=== PATIENT | male | born 1955 | race Caucasian/White ===

== ENCOUNTER 2025-02-04 19:53 | Inpatient (IN) | payer MEDICARE, OTHER ==
--- NOTE | 2025-02-04 20:35 | ED ---
General Adult HPI - General Chief complaint: Fall Stated complaint: Chest Pain Time Seen by Provider: 02/04/25 19:56 Source: patient, EMS, RN notes reviewed Mode of arrival: EMS - History of Present Illness Initial comments: 69-year-old male presents to the emergency department for evaluation of abnormal arm movements. He reports he attempted to sit on the recliner and fell the the ground. He believes that he lost his balance. He did not hit his head or lose consciousness. Did not have any injury from this. He proceeded to take his afternoon nap. He states that upon waking from his afternoon nap, he noticed that his left arm seemed to be moving in uncontrollable movements. He reports that this concerned him and he attempted to call 911 on his cell phone. He states that he was unable to get it to work and therefore he went outside and flagged down a neighbor to call the ambulance for him. He endorses pain in his left hand with swelling that has been ongoing for the past 2 weeks. Denies any numbness, tingling, weakness. - Related Data Previous Rx's Medication Instructions Recorded Apixaban [Eliquis] 5 mg PO BID #60 tab 02/07/25 Aspirin 81 mg PO DAILY tab 02/07/25 Atorvastatin [Lipitor] 80 mg PO HS #30 tab 02/07/25 Chlorthalidone [Hygroton] 25 mg PO DAILY #30 tab 02/07/25 Losartan [Cozaar] 100 mg PO HS #60 tab 02/07/25 Nicotine 21Mg/24Hr Patch [Habitrol] 1 patch TRANSDERM DAILY #30 patch 02/07/25 allopurinoL [Zyloprim] 200 mg PO DAILY #60 tab 02/07/25 levETIRAcetam [Keppra] 500 mg PO Q12HR #60 tab 02/07/25 Allergies Allergy/AdvReac Type Severity Reaction Status Date / Time No Known Allergies Allergy Verified 02/05/25 08:40 Review of Systems ROS Statement: Those systems with pertinent positive or pertinent negative responses have been documented in the HPI. ROS Other: All systems not noted in ROS Statement are negative. Past Medical History Past Medical History: No Reported History History of Any Multi-Drug Resistant Organisms: None Reported Past Surgical History: No Surgical Hx Reported Smoking Status: Current every day smoker Past Alcohol Use History: Occasional Past Drug Use History: Marijuana General Exam Limitations: no limitations General appearance: alert, in no apparent distress Head exam: Present: atraumatic, normocephalic, normal inspection Eye exam: Present: normal appearance, PERRL, EOMI. Absent: scleral icterus, conjunctival injection, periorbital swelling ENT exam: Present: normal exam, mucous membranes moist Neck exam: Present: normal inspection. Absent: tenderness, meningismus, lymphadenopathy Respiratory exam: Present: normal lung sounds bilaterally. Absent: respiratory distress, wheezes, rales, rhonchi, stridor Cardiovascular Exam: Present: regular rate, irregular rhythm, normal heart sounds. Absent: systolic murmur, diastolic murmur, rubs, gallop, clicks GI/Abdominal exam: Present: soft, normal bowel sounds. Absent: distended, te nderness, guarding, rebound, rigid Extremities exam: Present: full ROM, normal capillary refill, other (Mild swelling over the dorsal aspect of the left hand). Absent: tenderness, pedal edema, joint swelling, calf tenderness Neurological exam: Present: alert, oriented X3, CN II-XII intact Expanded Neurological exam: Present: protecting the airway Patient oriented to: Present: person, place, time Speech: Present: fluid speech Cranial nerves: EOM's Intact: Normal, Gag Reflex: Normal, Facial Sensation: Normal Upper motor neuron: Pronator Drift: Normal Sensory exam: Upper Extremity Light Touch: Normal, Lower Extremity Light Touch: Normal Motor strength exam: RUE: 5, LUE: 5, RLE: 5, LLE: 5 Eye Response: (4) open spontaneously Motor Response: (6) obeys commands Verbal Response: (5) oriented [place] Total: 15 Psychiatric exam: Present: normal affect, normal mood Skin exam: Present: warm, dry, intact, normal color. Absent: rash Course Vital Signs 02/04/25 02/04/25 02/04/25 19:55 21:24 22:52 Pulse Rate 60 80 68 Respiratory 18 19 19 Rate Blood Pressure 181/125 159/119 181/133 O2 Sat by Pulse 96 98 Oximetry 02/05/25 02/05/25 02/05/25 00:08 01:21 03:50 Pulse Rate 67 66 69 Respiratory 18 17 18 Rate Blood Pressure 153/96 161/134 154/92 O2 Sat by Pulse 97 98 Oximetry 02/05/25 05:25 Pulse Rate 56 L Respiratory 18 Rate Blood Pressure 143/100 O2 Sat by Pulse 98 Oximetry Medical Decision Making - Medical Decision Making Was pt. sent in by a medical professional or institution (ANKITA Tony, PRECISION DEVICES INSPECTOR/TESTER, urgent care, hospital, or fpc...) When possible be specific @ -No Did you speak to anyone other than the patient for history (EMS, parent, family, police, friend...)? What history was obtained from this source @ -No Did you review nursing and triage notes (agree or disagree)? Why? @ -I reviewed and agree with nursing and triage notes Were old charts reviewed (outside hosp., previous admission, EMS record, old EKG, old radiological studies, urgent care reports/EKG's, fpc records)? Report findings @ -No old charts were reviewed Differential Diagnosis (chest pain, altered mental status, abdominal pain women, abdominal pain men, vaginal bleeding, weakness, fever, dyspnea, syncope, headache, dizziness, GI bleed, back pain, seizure, CVA, palpatations, mental health, musculoskeletal)? @ -Differential Musculoskeletal Muscular strain, contusion, ligament sprain, fracture, arthritis, septic arthritis, bursitis, cellulitis, muscle spasm, nerve compression, DVT, arterial occlusion, herpes zoster, electrolyte abnormality, tumor.... This is not meant to be in all inclusive list EKG interpreted by me (3pts min.). @ -EKG@195 shows A-fib with rate of 91, QRS 136, QTQTc 376/425 X-rays interpreted by me (1pt min.). @ -X-ray of the left hand reveals osteoarthritic change without evidence for acute process CT interpreted by me (1pt min.). @ -CT brain and C spine reveals Vasogenic edema with loss of pimentel-white matter junction at the right temporal lobe/provide reason, no evidence of intracranial hemorrhage, no evidence of C-spine fracture U/S interpreted by me (1pt. min.). @ -US UE reveals no evidence of DVT What testing was considered but not performed or refused? (CT, X-rays, U/S, labs)? Why? @ -None What meds were considered but not given or refused? Why? @ -None Did you discuss the management of the patient with other professionals (professionals i.e. ANKITA Tony, PRECISION DEVICES INSPECTOR/TESTER, lab, RT, psych nurse, neonatal social worker, title i teacher, teacher, civil preparedness officer, case work aide)? Give summary @ -Management was discussed with Dr. Bartlett by my attending physician Was smoking cessation discussed for >3mins.? @ -No Was critical care preformed (if so, how long)? @ -No Were there social determinants of health that impacted care today? How? (Homelessness, low income, unemployed, alcoholism, drug addiction, transportation, low edu. Level, literacy, decrease access to med. care, detention, r ehab)? @ -No Was there de-escalation of care discussed even if they declined (Discuss DNR or withdrawal of care, Hospice)? DNR status @ -No What co-morbidities impacted this encounter? (DM, HTN, Smoking, COPD, CAD, Cancer, CVA, ARF, Chemo, Hep., AIDS, mental health diagnosis, sleep apnea, morbid obesity)? @ -None Was patient admitted / discharged? Hospital course, mention meds given and route, prescriptions, significant lab abnormalities, going to OR and other pertinent info. @ -Admitted. Patient presented to the emergency department for abnormal left arm movements. Laboratory studies were obtained revealing no significant leukocytosis, hemoglobin 17.8 normal coagulation studies; CMP is nonactionable. Patient underwent x-ray of the left hand revealing osteoarthritic changes without evidence of acute process. Ultrasound of the upper extremity reveals no evidence of DVT. Because of the vague neurocomplaints and the recent fall a CT of the brain was performed although the patient had a normal neurological examination, CT reveals the patient vasogenic edema with loss of pimentel-white matter junction within the right temporal lobe/parietal region, no evidence for acute intracranial hemorrhage, no evidence of C-spine fracture. Patient will be admitted with neuroconsultation. Patient's NIH 0 at time of my evaluation. Patient also has new onset A-fib and an echocardiogram was ordered. He will not be started on heparin at this time due to the recent CVA Case discussed with Dr. Bartlett by my attending physician Case discussed with Dr. Escobedo Undiagnosed new problem with uncertain prognosis? @ -No Drug Therapy requiring intensive monitoring for toxicity (Heparin, Nitro, Insulin, Cardizem)? @ -No Were any procedures done? @ -No Diagnosis/symptom? @ -CVA, new onset A-fib Acute, or Chronic, or Acute on Chronic? @ -Acute Uncomplicated (without systemic symptoms) or Complicated (systemic symptoms)? @ -Complicated Side effects of treatment? @ -No Exacerbation, Progression, or Severe Exacerbation? @ -No Poses a threat to life or bodily function? How? (Chest pain, [place], [place], pneumonia, PE, COPD, DKA, ARF, appy, cholecystitis, CVA, Diverticulitis, Homicidal, Suicidal, threat to staff... and all critical care pts) @ -No - Lab Data Result diagrams: 02/06/25 04:04 02/04/25 20:27 Lab Results 02/04/25 02/04/25 02/04/25 Range/Units 20:27 20:27 20:27 WBC 10.04 H (4.50-10.00) 10*3/uL RBC 6.23 H (4.40-5.60) 10*6/uL Hgb 17.8 H (13.0-17.0) g/dL Hct 52.2 H (39.6-50.0) % MCV 83.8 (80.0-97.0) fL MCH 28.6 (27.0-32.0) pg MCHC 34.1 (32.0-37.0) g/dL Plt Count 232 (140-440) 10*3/uL MPV 9.8 (9.5-12.2) fL Immature Gran % (Auto) 0.4 % Neutrophils % 67.8 % Lymphocytes % 20.4 % Monocytes % 8.9 % Eosinophils % 1.5 % Basophils % 1.0 % Immature Gran # 0.04 (0.00-0.04) 10*3/uL Neutrophils # 6.81 (1.80-7.70) 10*3/uL Lymphocytes # 2.05 (0.90-5.00) 10*3/uL Monocytes # 0.89 (0.20-1.00) 10*3/uL Eosinophils # 0.15 (0.04-0.35) 10*3/uL Basophils # 0.10 (0.00-0.10) 10*3/uL PT 11.8 (10.0-12.5) sec INR 1.1 (<1.2) APTT 22.4 (22.0-30.0) sec Sodium 137 (137-145) mmol/L Potassium 4.6 (3.5-5.1) mmol/L Chloride 102 (98-107) mmol/L Carbon Dioxide 23 (22-30) mmol/L Anion Gap 12 mmol/L BUN 15 (9-20) mg/dL Creatinine 0.72 (0.66-1.25) mg/dL Est GFR (CKD-EPI)AfAm >90 (>60 ml/min/1.73 sqM) Est GFR (CKD-EPI)NonAf >90 (>60 ml/min/1.73 sqM) Glucose 99 (74-99) mg/dL Estimated Ave Glu mg/dL mg/dL Hemoglobin A1c (<=6.0) % Calcium 10.3 H (8.4-10.2) mg/dL Magnesium 1.7 (1.6-2.3) mg/dL Total Bilirubin 0.8 (0.2-1.3) mg/dL AST 26 (17-59) U/L ALT 15 (4-49) U/L Alkaline Phosphatase 60 (38-126) U/L Troponin I (0.000-0.034) ng/mL Total Protein 6.7 (6.3-8.2) g/dL Albumin 4.2 (3.5-5.0) g/dL Triglycerides (0.00-149.00) mg/dL Cholesterol (0.00-200.00) mg/dL LDL Cholesterol, Calc (0.0-131.0) mg/dL VLDL Cholesterol, Calc (5.00-40.00) mg/dL HDL Cholesterol (40.00-60.00) mg/dL Cholesterol/HDL Ratio Ratio TSH (0.350-5.500) UIU/ML 02/04/25 02/04/25 02/04/25 Range/Units 20:27 20:27 20:27 WBC (4.50-10.00) 10*3/uL RBC (4.40-5.60) 10*6/uL Hgb (13.0-17.0) g/dL Hct (39.6-50.0) % MCV (80.0-97.0) fL MCH (27.0-32.0) pg MCHC (32.0-37.0) g/dL Plt Count (140-440) 10*3/uL MPV (9.5-12.2) fL Immature Gran % (Auto) % Neutrophils % % Lymphocytes % % Monocytes % % Eosinophils % % Basophils % % Immature Gran # (0.00-0.04) 10*3/uL Neutrophils # (1.80-7.70) 10*3/uL Lymphocytes # (0.90-5.00) 10*3/uL Monocytes # (0.20-1.00) 10*3/uL Eosinophils # (0.04-0.35) 10*3/uL Basophils # (0.00-0.10) 10*3/uL PT (10.0-12.5) sec INR (<1.2) APTT (22.0-30.0) sec Sodium (137-145) mmol/L Potassium (3.5-5.1) mmol/L Chloride (98-107) mmol/L Carbon Dioxide (22-30) mmol/L Anion Gap mmol/L BUN (9-20) mg/dL Creatinine (0.66-1.25) mg/dL Est GFR (CKD-EPI)AfAm (>60 ml/min/1.73 sqM) Est GFR (CKD-EPI)NonAf (>60 ml/min/1.73 sqM) Glucose (74-99) mg/dL Estimated Ave Glu mg/dL 117 mg/dL Hemoglobin A1c 5.7 (<=6.0) % Calcium (8.4-10.2) mg/dL Magnesium (1.6-2.3) mg/dL Total Bilirubin (0.2-1.3) mg/dL AST (17-59) U/L ALT (4-49) U/L Alkaline Phosphatase (38-126) U/L Troponin I <0.012 (0.000-0.034) ng/mL Total Protein (6.3-8.2) g/dL Albumin (3.5-5.0) g/dL Triglycerides 132.00 (0.00-149.00) mg/dL Cholesterol 173.00 (0.00-200.00) mg/dL LDL Cholesterol, Calc 108.0 (0.0-131.0) mg/dL VLDL Cholesterol, Calc 26.40 (5.00-40.00) mg/dL HDL Cholesterol 38.60 L (40.00-60.00) mg/dL Cholesterol/HDL Ratio 4.48 Ratio TSH 1.900 (0.350-5.500) UIU/ML Disposition Clinical Impression: CVA (cerebral vascular accident), New onset a-fib Disposition: ADMITTED IP TO THIS HOSP Is patient prescribed a controlled substance at d/c from ED?: No
[2025-02-04 20:55] LABS: Basophils # (A) 0.10 10*3/uL (0.00-0.10); Basophils % (A) 1.0 %; Eosinophils # (A) 0.15 10*3/uL (0.04-0.35); Eosinophils % (A) 1.5 %; HCT 52.2 % (39.6-50.0); HGB 17.8 g/dL (13.0-17.0); Lymphocytes # (A) 2.05 10*3/uL (0.90-5.00); Lymphocytes % (A) 20.4 %; MCH 28.6 pg (27.0-32.0); MCHC 34.1 g/dL (32.0-37.0); MCV 83.8 fL (80.0-97.0); Monocytes # (A) 0.89 10*3/uL (0.20-1.00); Monocytes % (A) 8.9 %; Neutrophils # (A) 6.81 10*3/uL (1.80-7.70); Neutrophils % (A) 67.8 %; Platelet Count 232 10*3/uL (140-440); RBC 6.23 10*6/uL (4.40-5.60); RDW 13.3 % (11.5-14.5); WBC 10.04 10*3/uL (4.50-10.00)
[2025-02-04 21:03] LABS: ALT 15 U/L (4-49); African American GFR (CKD) >90 (>60 ml/min/1.73 sqM); Albumin 4.2 g/dL (3.5-5.0); Anion Gap 12 mmol/L; Blood Urea Nitrogen 15 mg/dL (9-20); Calcium 10.3 mg/dL (8.4-10.2); Carbon Dioxide 23 mmol/L (22-30); Chloride 102 mmol/L (98-107); Glucose 99 mg/dL (74-99); Non-African American GFR(CKD) >90 (>60 ml/min/1.73 sqM); Sodium 137 mmol/L (137-145); Total Protein 6.7 g/dL (6.3-8.2)
[2025-02-04 21:07] LABS: INR 1.1 (<1.2); Partial Thromboplastin Time 22.4 sec (22.0-30.0); Prothrombin Time 11.8 sec (10.0-12.5)
[2025-02-04 21:10] LABS: AST 26 U/L (17-59); Alkaline Phosphatase 60 U/L (38-126); Magnesium 1.7 mg/dL (1.6-2.3); Potassium 4.6 mmol/L (3.5-5.1)
--- NOTE | 2025-02-04 21:11 | XR ---
EXAMINATION TYPE: XR hand complete LT DATE OF EXAM: 02/04/2025 8:58 PM COMPARISON: None CLINICAL INDICATION: Male, 69 years old with history of pain; PHH, pain TECHNIQUE: XR hand complete LT 3 views were obtained. FINDINGS: Normal alignment of the visualized joints. No acute osseous pathology is identified. No e vidence of soft tissue swelling. Multifocal degeneration changes with joint space narrowing and osteo phyte formation. IMPRESSION: 1. No acute osseous pathology. 2. Multifocal osteoarthrosis throughout the joints of the hand. [facility], , 02/04/2025 9:09 PM
--- NOTE | 2025-02-04 22:00 | US ---
EXAMINATION TYPE: US venous doppler duplex LE LT DATE OF EXAM: 02/04/2025 9:49 PM COMPARISON: NONE CLINICAL INDICATION: Male, 69 years old with history of pain; pain TECHNIQUE: The lower extremity deep venous system is examined utilizing real time linear array sonog bekah with graded compression, doppler sonography and color-flow sonography. Grayscale, color doppler , spectral doppler imaging performed of the deep veins of the lower extremities FINDINGS: SIDE PERFORMED: Left VESSELS IMAGED: Common Femoral Vein Deep Femoral Vein Greater Saphenous Vein * Femoral Vein Popliteal Vein Small Saphenous Vein * Proximal Calf Veins (* superficial vessels) Left Leg: appears negative for dvt; There is normal flow, compressibility, vascular waveforms. IMPRESSION: No evidence for deep vein thrombosis. [facility], , 02/04/2025 9:58 PM
[2025-02-04] MEDS: LABETALOL 5 MG/ML VIAL MDV IVP STA (22:58)
--- NOTE | 2025-02-04 23:38 | CT ---
EXAMINATION TYPE: CT brain cspine wo con DATE OF EXAM: 02/04/2025 11:19 PM COMPARISON: None. CLINICAL INDICATION: Male, 69 years old with history of fall, pain; pain TECHNIQUE: Brain: Multiple axial CT images of the brain were obtained without IV contrast. Cspine: Axial CT images from the skull base to the inferior aspect of T2 we obtained without intraven ous contrast. Coronal and sagittal reformatted images were also reviewed. . CT DLP: 1574 mGycm, Automated exposure control for dose reduction was used. FINDINGS: Brain: Extra-axial spaces: No abnormal extra-axial fluid collections. Ventricular system: Dilatation in proportion to cerebral atrophy. Cerebral parenchyma: Loss of pimentel-white matter junction differentiation within the right temporal/par ietal lobe. Cerebral atrophy. No acute intraparenchymal hemorrhage or mass effect. The remainder of the pimentel-white junctions are well differentiated. Scattered hypoattenuating areas are seen within the white matter. Cerebellum: Unremarkable. Mass effect: No evidence of midline shift. Intracranial vasculature: Atherosclerotic calcifications of the intracranial vessels. Soft tissues: Normal. Calvarium/osseous structures: No depressed skull fracture. Paranasal sinuses and mastoid air cells: Clear. Visualized orbits: Orbital contents are intact. Cervical spine: Fracture: None. Osseous structures: Multilevel degenerative disc disease changes with endplate spurring and disc oste ophyte complex's. Vertebral alignment: Within normal limits. Spinal canal/Neural Foramina: No evidence of significant spinal canal narrowing. No evidence for sign ificant neural foraminal stenosis. Neck soft tissues: Prevertebral soft tissues are within normal limits. Other: The airway is patent. The lung apices are clear. IMPRESSION: 1. Vasogenic edema with loss of pimentel-white matter junction within the right temporal lobe/parietal r egion correlate for signs and symptoms of acute/subacute CVA. 2. No evidence for intracranial hemorrhage. 3. No evidence of cervical spine fracture. 4. Moderate multilevel degenerative disc disease. Findings communicated to BILLY Maxwell on 02/04/2025 11:[address] Danielito Acosta. [facility], , 02/04/2025 11:36 PM
[2025-02-05] MEDS: SODIUM CHLORIDE 0.9% 1,000 ML IV ONE (00:07)
[2025-02-05] MEDS ORDERED: LABETALOL 5 MG/ML VIAL MDV IVP PRN (00:21)
[2025-02-05] MEDS: ASPIRIN 325 MG TAB PO STA (01:20)
--- NOTE | 2025-02-05 02:54 | CT ---
EXAM: CT Angiography Head With Intravenous Contrast CLINICAL HISTORY: ITS.REASON CT Reason: cva TECHNIQUE: Axial computed tomographic angiography images of the head with intravenous contrast. CTDI is 52.8 mGy and DLP is 50.1 mGy-cm. This CT exam was performed using one or more of the following dose reduction techniques: automated exposure control, adjustment of the mA and/or kV according to patient size, and/or use of iterative reconstruction technique. MIP reconstructed images were created and reviewed. COMPARISON: No relevant prior studies available. FINDINGS: The dural venous sinuses are patent. Right internal carotid artery: No acute findings. Intracranial segment is patent with no significant stenosis. No aneurysm. Right anterior cerebral artery: Unremarkable. No occlusion or significant stenosis. No aneurysm. Right middle cerebral artery: Unremarkable. No occlusion or significant stenosis. No aneurysm. Right posterior cerebral artery: Unremarkable. No occlusion or significant stenosis. No aneurysm. Right vertebral artery: Unremarkable as visualized. Left internal carotid artery: No acute findings. Intracranial segment is patent with no significant stenosis. No aneurysm. Left anterior cerebral artery: Unremarkable. No occlusion or significant stenosis. No aneurysm. Left middle cerebral artery: Unremarkable. No occlusion or significant stenosis. No aneurysm. Left posterior cerebral artery: Unremarkable. No occlusion or significant stenosis. No aneurysm. Left vertebral artery: Unremarkable as visualized. Basilar artery: Unremarkable. No occlusion or significant stenosis. No aneurysm. IMPRESSION: Negative CT angiogram of the head. EXAM: CT Angiography Neck With Intravenous Contrast CLINICAL HISTORY: ITS.REASON CT Reason: cva TECHNIQUE: Routine carotid CT angiography protocol was performed with intravenous contrast. NASCET criteria using the distal ICAs for comparison were used for evaluation of stenoses. CTDI is 52.8 mGy and DLP is 591.3 mGy-cm. This CT exam was performed using one or more of the following dose reduction techniques: automated exposure control, adjustment of the mA and/or kV according to patient size, and/or use of iterative reconstruction technique. MIP reconstructed images were created and reviewed. COMPARISON: None. FINDINGS: VASCULATURE: Right common carotid artery: Unremarkable. No occlusion or significant stenosis. No dissection. Right internal carotid artery: There is a 30% stenosis of the proximal right ICA with low attenuation plaque.. No dissection. Right external carotid artery: Unremarkable. No occlusion. Right vertebral artery: Unremarkable. No occlusion or significant stenosis. No dissection. Left common carotid artery: Unremarkable. No occlusion or significant stenosis. No dissection. Left internal carotid artery: Unremarkable. Extracranial segment is patent with no occlusion or significant stenosis. No dissection. Left external carotid artery: Unremarkable. No occlusion. Left vertebral artery: Unremarkable. No occlusion or significant stenosis. No dissection. NECK: Bones/joints: Periapical abscess around tooth #5. Recommend dental consult. There is a critical spinal canal stenosis at C5-6 and C6-7. No acute fracture. Soft tissues: Prominent mediastinal lymph nodes. Prominent cervical lymph nodes. Lung apices: Bronchitis. CAROTID STENOSIS REFERENCE USING NASCET CRITERIA: % ICA stenosis = (1 - narrowest ICA diameter/diameter of distal cervical ICA) x 100. Mild - <50% stenosis. Moderate - 50-69% stenosis. Severe - 70-94% stenosis. Near occlusion - 95-99% stenosis. Occluded - 100% stenosis. IMPRESSION: Negative CTA neck. There is a critical spinal canal stenosis at C5-6 and C6-7. Recommend MRI of the cervical spine to evaluate for myelopathy.
[2025-02-05] MEDS: LABETALOL 5 MG/ML VIAL MDV IVP STA (05:48)
[2025-02-05] MEDS: ENOXAPARIN 40 MG/0.4 ML SYRINGE SQ SCH (10:58)
[2025-02-05] MEDS: NICOTINE 21MG/24HR PATCH TRANSDERM SCH (10:59)
--- NOTE | 2025-02-05 11:07 | P.CRDCN ---
History of Present Illness History of present illness: HISTORY OF PRESENT ILLNESS: This is a 69-year-old male with no significant past medical history. However patient states he has not seen a physician in over 2 years. Patient also does not follow with a sterile process coordinator. Patient does not follow with a sterile process coordinator. We have been asked to see the patient in consultation for atrial fibrillation. Patient examined at the bedside. Patient presented to the hospital yesterday after waking up from a nap. He states that his left arm was moving uncontrollably and states it felt like it had a mind of its own he states that he went to sit in the chair and lost his balance and fell. He denies having any syncope. He denies any chest pain or pressure. Denies any shortness of breath. Denies any palpitations. Patient was found to be in atrial fibrillation. He denies any known history of atrial fibrillation. DIAGNOSTICS: - EKG reveals atrial fibrillation with controlled ventricular rate - Chest xray: No acute process noted - Laboratory data: Troponin negative x 1 - Current home cardiac medications include none. -No previous echocardiogram, stress test, or cardiac catheterization available in EMR for review REVIEW OF SYSTEMS: At the time of my exam: CONSTITUTIONAL: Denies fever or chills. HEENT: Denies blurred vision, vision changes, or eye pain. Denies hemoptysis CARDIOVASCULAR: Denies chest pain. Denies orthopnea. Denies PND. Denies palpitations RESPIRATORY: Denies shortness of breath. GASTROINTESTINAL: Denies abdominal pain. Denies nausea or vomiting. HEMATOLOGIC: Denies bleeding disorders. GENITOURINARY: Denies any blood in urine. SKIN: Denies pruitis. Denies rash. PHYSICAL EXAM: VITAL SIGNS: Reviewed. GENERAL: Well-developed in no acute distress. HEENT: Head is normocephalic. Pupils are equal, round. Sclerae anicteric. Mucous membranes of the mouth are moist. Neck supple. No JVD or thyromegaly LUNGS: Respirations even and unlabored. Lungs essentially clear to auscultation bilaterally. HEART: Irregular rate and rhythm. S1 and S2 heard. ABDOMEN: Soft. Nondistended. Nontender. EXTREMITIES: Normal range of motion. No clubbing or cyanosis. Peripheral pulses intact. No lower extremity edema NEUROLOGIC: Awake and alert. Oriented x 3. ASSESSMENT: New onset atrial fibrillation with controlled ventricular rate Involuntary movements of left arm, rule out CVA/TIA Hypertension PLAN: Obtain 2D echo to assess cardiac structure and function Check TSH, hemoglobin A1c, and lipid panel Add Lipitor Begin Eliquis 5 mg twice a day Continue telemetry monitoring Will allow for permissive hypertension until neurology has evaluated the patient Neurology consulted. Await evaluation Further recommendations pending patient course Nurse practitioner note has been reviewed by physician. Signing provider agrees with the documented findings, assessment, and plan of care documented by SYSTEMS SOFTWARE DEVELOPER as a scribe. Past Medical History Past Medical History: No Reported History History of Any Multi-Drug Resistant Organisms: None Reported Past Surgical History: Orthopedic Surgery Additional Past Surgical History / Comment(s): broke ankle years ago, has 3 screws. Past Anesthesia/Blood Transfusion Reactions: No Reported Reaction Past Psychological History: No Psychological Hx Reported Smoking Status: Current every day smoker Past Alcohol Use History: Occasional Past Drug Use History: Marijuana Medications and Allergies Home Medications Medication Instructions Recorded Confirmed Type No Known Home Medications 02/05/25 02/05/25 History Allergies Allergy/AdvReac Type Severity Reaction Status Date / Time No Known Allergies Allergy Verified 02/05/25 08:40 Physical Exam Vitals: Vital Signs Temp Pulse Pulse Pulse Resp BP BP 02/05/25 07:00 97.7 F 51 L 14 163/91 02/05/25 06:07 97.7 F 65 19 161/81 02/05/25 05:25 56 L 18 143/100 02/05/25 03:50 69 18 154/92 02/05/25 01:21 66 17 161/134 02/05/25 00:08 67 18 153/96 02/04/25 22:52 68 19 181/133 02/04/25 21:24 80 19 159/119 02/04/25 19:55 60 18 181/125 Pulse Ox 02/05/25 07:00 98 02/05/25 06:07 97 02/05/25 05:25 98 02/05/25 03:50 98 02/05/25 01:21 02/05/25 00:08 97 02/04/25 22:52 98 02/04/25 21:24 02/04/25 19:55 96 Intake and Output 02/04/25 02/05/25 02/05/25 22:59 06:59 14:59 Other: Voiding Method Toilet # Voids 1 Weight 99.79 kg 99.79 kg Results 02/04/25 20:27 02/04/25 20:27 Cardiac Enzymes 02/04/25 02/04/25 Range/Units 20:27 20:27 AST 26 (17-59) U/L Troponin I <0.012 (0.000-0.034) ng/mL Coagulation 02/04/25 Range/Units 20:27 PT 11.8 (10.0-12.5) sec APTT 22.4 (22.0-30.0) sec CBC 02/04/25 Range/Units 20:27 WBC 10.04 H (4.50-10.00) 10*3/uL RBC 6.23 H (4.40-5.60) 10*6/uL Hgb 17.8 H (13.0-17.0) g/dL Hct 52.2 H (39.6-50.0) % Plt Count 232 (140-440) 10*3/uL Comprehensive Metabolic Panel 02/04/25 Range/Units 20:27 Sodium 137 (137-145) mmol/L Potassium 4.6 (3.5-5.1) mmol/L Chloride 102 (98-107) mmol/L Carbon Dioxide 23 (22-30) mmol/L BUN 15 (9-20) mg/dL Creatinine 0.72 (0.66-1.25) mg/dL Glucose 99 (74-99) mg/dL Calcium 10.3 H (8.4-10.2) mg/dL AST 26 (17-59) U/L ALT 15 (4-49) U/L Alkaline Phosphatase 60 (38-126) U/L Total Protein 6.7 (6.3-8.2) g/dL Albumin 4.2 (3.5-5.0) g/dL Current Medications Generic Name Dose Route Start Last Admin Trade Name Freq PRN Reason Stop Dose Admin Aspirin 325 mg 02/06/25 09:00 Aspirin 325 Mg Tab PO DAILY BROOKS Intake and Output 02/04/25 02/05/25 02/05/25 22:59 06:59 14:59 Other: Voiding Method Toilet # Voids 1 Weight 99.79 kg 99.79 kg 02/04/25 20:27 02/04/25 20:27
--- NOTE | 2025-02-05 11:46 | CA ---
Transthoracic Echo Report Name: aDrci Schmidt Age: 69 Gender: M : 1955 Exam Date: 02/05/2025 09:27 Exam Location: [facility] Ht (in): 71 Wt (lb): 220 Ordering Physician: Nadege Dyson Attending/Referring Phys: Maintenance Operator Sherrie Chadwick [id number] Procedure CPT: Indications: Thrombus Cardiac Hx: Technical Quality: Poor Contrast 1: Definity Total Dose (mL): 2 Contrast 2: Total Dose (mL): MEASUREMENTS (Male / Female) Normal Values 2D ECHO LV Diastolic Diameter PLAX 5.7 cm 4.2 - 5.9 / 3.9 - 5.3 cm LV Systolic Diameter PLAX 5.2 cm IVS Diastolic Thickness 1.0 cm 0.6 - 1.0 / 0.6 - 0.9 cm LVPW Diastolic Thickness 1.4 cm 0.6 - 1.0 / 0.6 - 0.9 cm LV Relative Wall Thickness 0.4 RV Internal Dim ED PLAX 2.8 cm LVOT Diameter 2.3 cm LA Systolic Diameter LX 4.4 cm 3.0 - 4.0 / 2.7 - 3.8 cm LV Diastolic Volume MOD BP 138.2 cm??? 67 - 155 / 56 - 104 cm??? LV Systolic Volume MOD BP 69.5 cm??? - / 19 - 49 cm??? LV Ejection Fraction MOD BP 49.7 % >= 55 % LV Cardiac Index MOD BP 1550.1 cm???/min???m??? LV Diastolic Volume MOD 4C 144.5 cm??? LV Systolic Volume MOD 4C 73.4 cm??? LV Ejection Fraction MOD 4C 49.2 % LV Cardiac Index MOD 4C 1604.0 cm???/min???m??? LV Diastolic Length 4C 8.4 cm LV Systolic Length 4C 7.3 cm LV Diastolic Volume MOD 2C 133.7 cm??? LV Systolic Volume MOD 2C 63.4 cm??? LV Ejection Fraction MOD 2C 52.6 % LV Cardiac Index MOD 2C 1585.7 cm???/min???m??? LV Diastolic Length 2C 8.3 cm LV Systolic Length 2C 7.0 cm LA Volume 77.1 cm??? - 58 / 22 - 52 cm??? LA Volume Index 34.1 cm???/m??? 16 - 28 cm???/m??? Ascending Aorta Diameter 4.2 cm M-MODE Aortic Root Diameter MM 3.9 cm AV Cusp Separation MM 2.2 cm DOPPLER AV Peak Velocity 105.8 cm/s AV Peak Gradient 4.5 mmHg LVOT Peak Velocity 81.9 cm/s LVOT Peak Gradient 2.7 mmHg AV Area Cont Eq pk 3.3 cm??? MV Area PHT 6.0 cm??? Mitral E Point Velocity 86.4 cm/s Mitral A Point Velocity 20.1 cm/s Mitral E to A Ratio 4.3 MV Deceleration Time 125.6 ms TR Peak Velocity 243.1 cm/s TR Peak Gradient 23.6 mmHg Right Ventricular Systolic Press 28.6 mmHg FINDINGS Left Ventricle Left ventricular ejection fraction is estimated at 45-50%. Mildly increased left ventricular systolic volume. Mildly decreased left ventricular ejection fraction. the inferoseptal apex is hypokinetic . Right Ventricle Normal right ventricular size and function. Right ventricular systolic pressure within normal limits. Right Atrium Mild right atrial dilatation. No right atrial thrombus or mass seen. Left Atrium Mildly increased left atrial diameter. Moderately increased left atrial volume. Mildly increased left atrial area. No left atrial thrombus or mass present. Mitral Valve Mitral valve thickened. Mitral annular calcification. Trace to mild mitral regurgitation. Aortic Valve Trileaflet aortic valve. No aortic stenosis. No aortic regurgitation. Tricuspid Valve Tricuspid valve not well visualized. No tricuspid regurgitation. Pulmonic Valve Pulmonic valve not well visualized. Trace pulmonic regurgitation. Pericardium No pericardial effusion. Pleural effusion. Aorta Normal size aortic root mildly dilated proximal ascending aorta 4.2cm CONCLUSIONS Mildly impaired LV function with EF between 40 to 45% Previewed by: Dr. Quinton Mason MD (Electronically Signed) Final Date: 05 February 2025 11:45
[2025-02-05] MEDS ORDERED: HEPARIN SODIUM 1,000 UN/ML (10ML VL) IV PRN (14:16)
[2025-02-05] MEDS: HEPARIN SOD,PORK IN 0.45% NACL 25,000 UNIT in 0.45% NACL 1 250ML.BAG IV SCH (14:37)
--- NOTE | 2025-02-05 14:38 | P.CNNES ---
History of Present Illness Consult date: 02/05/25 Requesting physician: Nadege Dyson Reason for Consult: cva History of Present Illness: This is a 69-year-old gentleman who presents emergency department because of abnormal movement of the left upper extremity. Patient stated that he noticed the symptoms yesterday around 4 to 5 PM and the left arm had abnormal movements but did not lose consciousness. Upon asking him if was weak he denies any weakness. Denies any numbness. Denies any visual disturbance. Denies any speech difficulty. Denies any history of stroke or seizures. Patient states that he is fairly healthy other than a gout but does acknowledge that he has not seen primary care physician in a couple years. It seems that he notified the ED team that he attempted to sit on rocking or chair and fell to the ground and he felt like he lost his balance but did not lose consciousness. He did not have any head injury. Then he took a nap and then upon waking up in the early afternoon he noticed his left arm seems to be moving uncontrollable movement. This seems to the patient while in the ED had new onset A-fib. Patient is on any antiplatelet or any anticoagulation Some of the workup during this hospital visit consisted of: I will review the lab workup CT of the head and cervical spine is reported as vasogenic edema with loss of pimentel-white matter junction within the right temporal parietal region correlate for signs symptoms for acute/subacute CVA. No evidence of intracranial hemorrhage. No evidence of cervical spine fracture. Moderate multilevel degenerative disc disease. I personally reviewed the see TE and I feel patient does not have hypoattenuation over the predominantly the right temporal region CT angiography of the head and neck is reported as negative CT angiography of the head and neck but shows critical spinal canal stenosis C5-C6 and C6-C7 recommend MRI of the cervical spine to evaluate for myelopathy. Review of Systems As per HPI. Past Medical History Past Medical History: No Reported History History of Any Multi-Drug Resistant Organisms: None Reported Past Surgical History: Orthopedic Surgery Additional Past Surgical History / Comment(s): broke ankle years ago, has 3 screws. Past Anesthesia/Blood Transfusion Reactions: No Reported Reaction Past Psychological History: No Psychological Hx Reported Smoking Status: Current every day smoker Past Alcohol Use History: Occasional Past Drug Use History: Marijuana Medications and Allergies Home Medications Medication Instructions Recorded Confirmed Type No Known Home Medications 02/05/25 02/05/25 History Allergies Allergy/AdvReac Type Severity Reaction Status Date / Time No Known Allergies Allergy Verified 02/05/25 08:40 Physical Examination - Vital Signs Vital Signs: Vital Signs Temp Pulse Pulse Pulse Resp BP BP 02/05/25 12:00 98.1 F 52 L 14 169/89 02/05/25 07:00 97.7 F 51 L 14 163/91 02/05/25 06:07 97.7 F 65 19 161/81 02/05/25 05:25 56 L 18 143/100 02/05/25 03:50 69 18 154/92 02/05/25 01:21 66 17 161/134 02/05/25 00:08 67 18 153/96 02/04/25 22:52 68 19 181/133 02/04/25 21:24 80 19 159/119 02/04/25 19:55 60 18 181/125 Pulse Ox 02/05/25 12:00 98 02/05/25 07:00 98 02/05/25 06:07 97 02/05/25 05:25 98 02/05/25 03:50 98 02/05/25 01:21 02/05/25 00:08 97 02/04/25 22:52 98 02/04/25 21:24 02/04/25 19:55 96 Intake and Output 02/04/25 02/05/25 02/05/25 22:59 06:59 14:59 Intake Total 180 Balance 180 Intake: Oral 180 Other: Voiding Method Toilet Toilet # Voids 1 Weight 99.79 kg 99.79 kg GENERAL: The patient is lying in bed and is not in acute distress. NEUROLOGICAL: Higher mental function: The patient is awake, alert, oriented to self, place and time. Patient is following commands. No aphasia. It appear patient at time is neglect the left upper extremity. Cranial nerves: The pupils are round, equal and reactive to light and accommodation. Visual saleh: Left homonymous lower quandrant anopsia to confrontation throughout. Extraocular movement is intact no nystagmus is noted. Facial sensation is normal to touch throughout. The facial strength is normal throughout. Hearing is mildly to moderately decreased bilaterally to hand rub. Tongue is midline and moved [id number] without any difficulty. No dysarthria is noted. Shoulder shrug is normal bilaterally. Motor: The strength is 5 over 5 throughout. Normal tone and bulk. Cerebellum: Normal finger to nose bilaterally. Sensation: Sensation is normal to touch throughout. Reflexes (right/left): 2+ throughout. Results - Laboratory Findings CBC and BMP: 02/04/25 20:27 02/04/25 20:27 Abnormal Lab Findings: Abnormal Labs 02/04/25 02/04/25 20:27 20:27 WBC 10.04 H RBC 6.23 H Hgb 17.8 H Hct 52.2 H Calcium 10.3 H Assessment and Plan Assessment: This is a 69-year-old gentleman who presents emergency department because of abnormal movement of the left upper extremity. In our ED CT shows hypodensity over the right temporoparietal region concerning for stroke. Also was noted that he has new onset A-fib. Patient has not seen a couple years Subacute to subacute ischemic stroke over the right temporoparietal region but I feel its mostly temporal. No IV TNKase since outside the window and the risk outweighed the benefit. New onset A-fib and currently the patient was started on Eliquis by the cardiology team Hypertension Severe cervical stenosis per reading radiologist on the CT History of gout Plan: In the ED the patient was given aspirin 325 once and was started on aspirin 81 mg daily. ED team placed the patient on Eliquis and I spoke with the cardiology nurse practitioner and recommended to avoid any hemorrhagic conversion but if anticoagulation is critical then can consider heparin drip but avoid boluses Patient is on Lipitor 80 mg nightly. I ordered MRI of the brain. 2D echo Neurochecks Cardiac monitoring PT OT and HYDRAULIC PRESS TENDER are consulted Recommend permissive hypertension for 24 hours. Cardiology is on board I also ordered MRI of the cervical spine to rule out any severe stenosis and I consulted orthopedic surgery team Dr. Martha Allison the patient is on Eliquis Will defer the rest of the medical management to primary other specialist Thank you for the consultation. Time with Patient: Greater than 30
[2025-02-05 14:45] LABS: Basophils # (A) 0.12 10*3/uL (0.00-0.10); Basophils % (A) 1.2 %; Eosinophils # (A) 0.20 10*3/uL (0.04-0.35); Eosinophils % (A) 1.9 %; HCT 53.6 % (39.6-50.0); HGB 17.5 g/dL (13.0-17.0); Lymphocytes # (A) 2.47 10*3/uL (0.90-5.00); Lymphocytes % (A) 24.0 %; MCH 28.1 pg (27.0-32.0); MCHC 32.6 g/dL (32.0-37.0); MCV 86.0 fL (80.0-97.0); Monocytes # (A) 0.94 10*3/uL (0.20-1.00); Monocytes % (A) 9.1 %; Neutrophils # (A) 6.56 10*3/uL (1.80-7.70); Neutrophils % (A) 63.6 %; Platelet Count 230 10*3/uL (140-440); RBC 6.23 10*6/uL (4.40-5.60); RDW 13.6 % (11.5-14.5); WBC 10.31 10*3/uL (4.50-10.00)
[2025-02-05 15:03] LABS: INR 1.2 (<1.2); Partial Thromboplastin Time 24.4 sec (22.0-30.0); Prothrombin Time 12.6 sec (10.0-12.5)
[2025-02-05 15:26] LABS: Cholesterol 173.00 mg/dL (0.00-200.00); HDL Cholesterol 38.60 mg/dL (40.00-60.00); LDL Cholesterol,Calculated 108.0 mg/dL (0.0-131.0); Triglycerides 132.00 mg/dL (0.00-149.00); VLDL Calculation 26.40 mg/dL (5.00-40.00)
--- NOTE | 2025-02-05 15:27 | P.HPIM ---
History of Present Illness H&P Date: 02/05/25 Chief Complaint: Left arm weakness This is a pleasant 69-year-old patient with a family doctor. He did follow-up with a physician before and was on medication for gout. He al so was prescribed other pills but he said he is not a prescription present the foot decided not to take it. Patient is drinking heavy alcohol till about 6 months ago. Smokes a pack a day for last 50 years. Yesterday he noticed that his left arm was flailing about lasted about 15 seconds. Then it became better. This morning was noted by the speech therapist and the aide that is left arm was not functioning fully. Patient denies any change in his speech. No change in walking. He did complain of some pain of the back of the head yesterday. Review of systems: GEN.: None EYES: None HEENT: None NECK: None RESPIRATORY: None CARDIOVASCULAR: None GASTROINTESTINAL: None GENITOURINARY: None MUSCULOSKELETAL: None LYMPHATICS: None HEMATOLOGICAL: None PSYCHIATRY: None NEUROLOGICAL: [As above Social history: Lives alone. Was drinking heavy alcohol till about 6 months ago. 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 Smokes a pack a day for last 50 years. Physical examination: VITAL SIGNS: 97.7, 65, 19, 161 x 81, 97% room air GENERAL: BMI 29.8, lying in bed awake not in distress. EYES: Pupils equal. Conjunctiva misha l. HEENT: External appearance of nose and ears normal, oral cavity grossly normal. NECK: JVD not raised; masses not palpable. HEART: First and second heart sounds are normal; no edema. LUNGS: Respiratory rate normal; decreased breath sound. ABDOMEN: Soft, nontender, liver spleen not palpable, no masses palpable. PSYCH: Alert and oriented x3; mood and affect misha l. MUSCULOSKELETAL:No Clubbing/cyanosis;muscles-grossly intact NEUROLOGICAL: Cranial nerves grossly intact; no facial asymmetry, left arm weakness power 4/5. Decreased left hand kosher sealer.. LYMPHATICS: No lymph nodes palpable in the axilla and neck INVESTIGATIONS, reviewed in the clinical context: February 05, 2025: White count 10.3 hemoglobin 17.5 platelets 230 potassium 4.6 BUN 15 creatinine 0.72 Troponin I less than 0.012 EKG tracing personally reviewed by me-atrial fibrillation. Rate [address]: Vasogenic edema with loss of pimentel-white matter junction within the right temporal lobe parietal region correlate to signs symptoms of a cute/subacute CVA. Moderate level DJD Dx disease. Head neck CTA: Negative critical spinal canal stenosis C5-C6, C6-C7. 2D echocardiogram: EF 45 to 50%. Inferoseptal apex hypokinetic. Assessment and plan: - Acute stroke in the right temporal parietal lobe region. Symptoms are fluctuated Aspirin. Lipitor. Neurochecks. Neurology following. MRI. - Essential hypertension. Patient still within the 24-hour window from initial presentation of the stroke. Hold off any antihypertensives for now - Check for hyperlipidemia - Inferoseptal apex hypokinetic. Cardiology following. Will need further workup. - Chronic nicotine dependence, cigarette smoker Nicotine patch 21 - History of gout, patient was not taking allopurinol. Check uric acid level - Persistent atrial fibrillation, rate controlled IV heparin per cardiology - Spinal skull stenosis C5-C6, C6-C7 [facility]ine consulted - IV heparin monitoring per protocol - Full code Past Medical History Past Medical History: No Reported History History of Any Multi-Drug Resistant Organisms: None Reported Past Surgical History: Orthopedic Surgery Additional Past Surgical History / Comment(s): broke ankle years ago, has 3 screws. Past Anesthesia/Blood Transfusion Reactions: No Reported Reaction Past Psychological History: No Psychological Hx Reported Smoking Status: Current every day smoker Past Alcohol Use History: Occasional Past Drug Use History: Marijuana Medications and Allergies Home Medications Medication Instructions Recorded Confirmed Type No Known Home Medications 02/05/25 02/05/25 History Allergies Allergy/AdvReac Type Severity Reaction Status Date / Time No Known Allergies Allergy Verified 02/05/25 08:40 Physical Exam Vitals: Vital Signs Temp Pulse Pulse Pulse Resp BP BP 02/05/25 12:00 98.1 F 52 L 14 169/89 02/05/25 07:00 97.7 F 51 L 14 163/91 02/05/25 06:07 97.7 F 65 19 161/81 02/05/25 05:25 56 L 18 143/100 02/05/25 03:50 69 18 154/92 02/05/25 01:21 66 17 161/134 02/05/25 00:08 67 18 153/96 02/04/25 22:52 68 19 181/133 02/04/25 21:24 80 19 159/119 02/04/25 19:55 60 18 181/125 Pulse Ox 02/05/25 12:00 98 02/05/25 07:00 98 02/05/25 06:07 97 02/05/25 05:25 98 02/05/25 03:50 98 02/05/25 01:21 02/05/25 00:08 97 02/04/25 22:52 98 02/04/25 21:24 02/04/25 19:55 96 Intake and Output 02/05/25 02/05/25 02/05/25 06:59 14:59 22:59 Intake Total 180 Balance 180 Intake: Oral 180 Other: Voiding Method Toilet Toilet # Voids 1 Weight 99.79 kg Results CBC & Chem 7: 02/05/25 14:29 02/04/25 20:27 Labs: Abnormal Lab Results - Last 24 Hours (Table) 02/04/25 02/04/25 02/05/25 Range/Units 20:27 20:27 14:29 WBC 10.04 H 10.31 H (4.50-10.00) 10*3/uL RBC 6.23 H 6.23 H (4.40-5.60) 10*6/uL Hgb 17.8 H 17.5 H (13.0-17.0) g/dL Hct 52.2 H 53.6 H (39.6-50.0) % Basophils # 0.12 H (0.00-0.10) 10*3/uL PT (10.0-12.5) sec INR (<1.2) Calcium 10.3 H (8.4-10.2) mg/dL 02/05/25 Range/Units 14:29 WBC (4.50-10.00) 10*3/uL RBC (4.40-5.60) 10*6/uL Hgb (13.0-17.0) g/dL Hct (39.6-50.0) % Basophils # (0.00-0.10) 10*3/uL PT 12.6 H (10.0-12.5) sec INR 1.2 H (<1.2) Calcium (8.4-10.2) mg/dL
--- NOTE | 2025-02-05 17:07 | XR ---
EXAMINATION TYPE: XR chest 2V DATE OF EXAM: 02/05/2025 4:48 PM COMPARISON: None TECHNIQUE: XR chest 2V Frontal and lateral views of the chest. CLINICAL INDICATION:Male, 69 years old with history of Smoker; shortness of breath. FINDINGS: Lungs/Pleura: There is flattening of the diaphragm with increased lucency of the lungs. No evidence o f pneumothorax, pleural effusion or focal consolidation. Pulmonary vascularity: Unremarkable. Heart/mediastinum: Cardiomediastinal silhouette is unremarkable. Musculoskeletal: No acute osseous pathology. Remote healed left-sided rib fractures. IMPRESSION: 1. No acute cardiopulmonary disease process. 2. COPD changes. [facility], , 02/05/2025 5:05 PM
[2025-02-05 17:19] LABS: Glucose,Whole Blood 86 mg/dL (70-110)
[2025-02-05] MEDS ORDERED: levETIRAcetam IV 1,500 MG in SODIUM CHLORIDE 0.9% 250 ML IVPB ONE (17:30)
[2025-02-05] MEDS: LORazepam 1 MG/0.5 ML VIAL IV STA (17:36)
[2025-02-05] MEDS: levETIRAcetam IV 500 MG/5 ML VIAL IVP ONE (18:10)
[2025-02-05] MEDS: ATORVASTATIN 80 MG TAB PO SCH (19:39)
[2025-02-05] MEDS ORDERED: APIXABAN 5 MG TAB PO SCH (21:00)
--- NOTE | 2025-02-06 00:45 | P.CONS ---
History of Present Illness - Reason for Consult Consult date: 02/05/25 Onychogryphosis, onychomycosis to feet - Chief Complaint CVA, new onset A-fib, tinea unguium - History of Present Illness Patient is a pleasant 69 year-old male who was brought to the ED on 02/04/2025 for a spasmodic left arm. PAtient relates that he noticed his arm was moving uncontrollably, so he got one of his neighbors to bring him to the ED for further care. Patient was admitted for CVA and new onset A-fib. Podiatry was consulted regarding the patient's thickened, dystrophic, elongated, dicolored toenails. Patient relates that he cannot bend to trim his own toenails due to lower back pain and issues. Patientrelates that he is not diabetic to his knowledge, but also states that he has not seen a doctor in around 2 years. Patient states that he currently smokes 1 pack per day. he also admits to drinking EtOH excessively (15 cans of beer per day). Patient has no other pedal complaints at this time. Review of Systems Constitutional: Reports as per HPI, Reports weakness (To left arm), Denies chills, Denies fever, Denies malaise Eyes: denies blurred vision, denies diplopia Ears: deny: decreased hearing, tinnitus Ears, nose, mouth and throat: Denies sinus pain, Denies vertigo Cardiovascular: Denies chest pain, Denies claudication, Denies leg edema, Denies lightheadedness, Denies shortness of breath Respiratory: Denies cough, Denies cough with sputum, Denies dyspnea, Denies hemoptysis, Denies wheezing Gastrointestinal: Denies abdominal pain, Denies constipation, Denies diarrhea, Denies heartburn, Denies nausea, Denies vomiting Musculoskeletal: Reports muscle weakness (To left arm), Denies gait dysfunction, Denies leg numbness/tingling, Denies shooting leg pain Musculoskeletal: absent: foot pain, foot swelling Integumentary: Reports as per HPI, Reports onychomycosis, Denies foot/leg ulcers, Denies rash, Denies sores, Denies unusual bruising, Denies wounds Neurological: Reports as per HPI, Reports weakness (To left arm; denies weakness to either leg), Denies balance difficulties, Denies gait dysfunction, Denies headaches, Denies numbness, Denies sensory deficit, Denies tingling Past Medical History Past Medical History: No Reported History History of Any Multi-Drug Resistant Organisms: None Reported Past Surgical History: Orthopedic Surgery Additional Past Surgical History / Comment(s): broke ankle years ago, has 3 screws. Past Anesthesia/Blood Transfusion Reactions: No Reported Reaction Past Psychological History: No Psychological Hx Reported Smoking Status: Current every day smoker Past Alcohol Use History: Occasional Past Drug Use History: Marijuana Medications and Allergies Home Medications Medication Instructions Recorded Confirmed Type No Known Home Medications 02/05/25 02/05/25 History Allergies Allergy/AdvReac Type Severity Reaction Status Date / Time No Known Allergies Allergy Verified 02/05/25 08:40 Physical Exam Vitals: Vital Signs Temp Pulse Pulse Pulse Resp BP BP 02/05/25 12:00 98.1 F 52 L 14 169/89 02/05/25 07:00 97.7 F 51 L 14 163/91 02/05/25 06:07 97.7 F 65 19 161/81 02/05/25 05:25 56 L 18 143/100 02/05/25 03:50 69 18 154/92 02/05/25 01:21 66 17 161/134 02/05/25 00:08 67 18 153/96 02/04/25 22:52 68 19 181/133 02/04/25 21:24 80 19 159/119 02/04/25 19:55 60 18 181/125 Pulse Ox 02/05/25 12:00 98 02/05/25 07:00 98 02/05/25 06:07 97 02/05/25 05:25 98 02/05/25 03:50 98 02/05/25 01:21 02/05/25 00:08 97 02/04/25 22:52 98 02/04/25 21:24 02/04/25 19:55 96 Intake and Output 02/05/25 02/05/25 02/05/25 06:59 14:59 22:59 Intake Total 180 Balance 180 Intake: Oral 180 Other: Voiding Method Toilet Toilet # Voids 1 Weight 99.79 kg - Constitutional Well nourished and well developed male with disheveled appearance. Alert and oriented x3. Not in acute distress. Appropriate mood and affect. Pleasant demeanor. General appearance: cooperative, disheveled, no acute distress - EENT Eyes: PERRLA, normal appearance - Respiratory Breathing is unlabored with regular rate and rhythm. - Cardiovascular DP and PT pulses are 1/4 bilaterally. CFT is <3 seconds to all 10 toes. No hair growth is present to the level of the toes. Mild edema noted to BLE. - Gastrointestinal General gastrointestinal: soft, no tenderness - Integumentary Skin is warm and dry. Skin to BLE is ruborous. No open lesions noted to BLE. No hyperkeratoses noted to BLE. Nails 1-10 are grossly elongated, thickened, discolored, and with subungual debris. Webspaces 1-4 are dry. Some white, flaky plaques note to the soles of both feet. Integumentary: decreased turgor, no rash, no ulcer - Neurologic Epicritic and protopathic sensations are diminished to the level of the toes bilaterally. Light touch sensation is diminished to the level of the toes bilaterally. - Musculoskeletal Muscle strength is 5/5 and symmetric for all muscle groups crossing the ankle joint bilaterally. No pain with active, passive, or resistive ROM of the bilateral foot and ankle. Bilateral hallux valgus deformities noted with hammertoes of toes 2-4 bilaterally. Pes planus foot structure noted bilaterally. Foot and ankle are in groslsy rectus alignment. Diminished ROm noted to bilateral ankle and ST joints. Musculoskeletal: gait normal, strength equal bilaterally - Psychiatric Psychiatric: A&O x's 3, appropriate affect, intact judgment & insight Results CBC & Chem 7: 02/05/25 14:29 02/04/25 20:27 Labs: Abnormal Lab Results - Last 24 Hours (Table) 02/04/25 02/04/25 02/04/25 Range/Units 20:27 20:27 20:27 WBC 10.04 H (4.50-10.00) 10*3/uL RBC 6.23 H (4.40-5.60) 10*6/uL Hgb 17.8 H (13.0-17.0) g/dL Hct 52.2 H (39.6-50.0) % Basophils # (0.00-0.10) 10*3/uL PT (10.0-12.5) sec INR (<1.2) Calcium 10.3 H (8.4-10.2) mg/dL HDL Cholesterol 38.60 L (40.00-60.00) mg/dL 02/05/25 02/05/25 Range/Units 14:29 14:29 WBC 10.31 H (4.50-10.00) 10*3/uL RBC 6.23 H (4.40-5.60) 10*6/uL Hgb 17.5 H (13.0-17.0) g/dL Hct 53.6 H (39.6-50.0) % Basophils # 0.12 H (0.00-0.10) 10*3/uL PT 12.6 H (10.0-12.5) sec INR 1.2 H (<1.2) Calcium (8.4-10.2) mg/dL HDL Cholesterol (40.00-60.00) mg/dL Assessment and Plan (1) Tinea unguium Current Visit: Yes Status: Acute Code(s): B35.1 - TINEA UNGUIUM SNOMED Code(s): 061043432 (2) Onychogryphosis Current Visit: Yes Status: Acute Code(s): L60.2 - ONYCHOGRYPHOSIS SNOMED Code(s): 43901536 Plan: Patient was seen and evaluated. Debrided nails 1-10 with sterile nail nipper with reduction in length and thickness to patient's satisfaction without incident. Discussed with the patient that his toenails appear to have a fungal infection. Discussed topical vs. oral antifungal therapy and efficacy rates. Discussed with the patient that he can follow up at this provider's clinic after discharge for continued nail care since he is unable to trim them himself. Podiatry will sign off for now, unless patient has other pedal concerns. Patient can follow up as outpatient. He verbalized understanding and agreement with the treatment plan as stated. All of his questions were answered to his satisfaction. Dr. Bartlett, thank you for the consult and for allowing me to participate in this patient's care. Time with Patient: Greater than 30
[2025-02-06 04:21] LABS: Basophils # (A) 0.13 10*3/uL (0.00-0.10); Basophils % (A) 1.2 %; Eosinophils # (A) 0.24 10*3/uL (0.04-0.35); Eosinophils % (A) 2.2 %; HCT 52.3 % (39.6-50.0); HGB 16.8 g/dL (13.0-17.0); Lymphocytes # (A) 2.42 10*3/uL (0.90-5.00); Lymphocytes % (A) 22.6 %; MCH 27.1 pg (27.0-32.0); MCHC 32.1 g/dL (32.0-37.0); MCV 84.4 fL (80.0-97.0); Monocytes # (A) 0.98 10*3/uL (0.20-1.00); Monocytes % (A) 9.2 %; Neutrophils # (A) 6.92 10*3/uL (1.80-7.70); Neutrophils % (A) 64.6 %; Platelet Count 214 10*3/uL (140-440); RBC 6.20 10*6/uL (4.40-5.60); RDW 14.0 % (11.5-14.5); WBC 10.71 10*3/uL (4.50-10.00)
[2025-02-06 04:33] LABS: INR 1.2 (<1.2); Partial Thromboplastin Time 39.4 sec (22.0-30.0); Prothrombin Time 12.9 sec (10.0-12.5)
[2025-02-06] MEDS: levETIRAcetam 500 MG TAB PO SCH ×2 (07:46→21:11)
[2025-02-06] MEDS: ASPIRIN 81 MG PO SCH (07:46)
[2025-02-06] MEDS ORDERED: ASPIRIN 325 MG TAB PO SCH (09:00)
--- NOTE | 2025-02-06 09:01 | P.CNOR ---
History of Present Illness - [facility] Consult date: 02/06/25 Requesting physician: Pawan Luevano Consult reason: other (C5-6 and C6-7 spinal stenosis) History of present illness: Patient is a very pleasant 69-year-old male who is seen examined at the bedside for further evaluation of his cervical spine. Patient was experiencing uncontrolled movements of his left upper extremity and seizure-like activity. He presented to [facility] for further evaluation. He was found to have a right sided stroke. He was also found to be in atrial fibrillation. Currently he is being seen and managed by medicine, cardiology, and neurology. Neurology and cardiology is managing and balancing his anticoagulation given his recent stroke but also atrial fibrillation. They are currently planning for 2D echocardiogram. We were consulted after severe stenosis was found on CT imaging. Neurology has ordered cervical MRI imaging which is pending. Patient states other than his uncontrolled movements with his left upper extremity with seizure-like activity yesterday, he does not have any difficulties with his upper extremities. He has some minor swelling in his left hand which he feels may be due to arthritis. He denies any specific upper extremity radiculopathy bilaterally. He denies change in dexterity. He denies change in penmanship. He states he is ambulating without significant difficulty. He does not drift during ambulation. He has some minor cervical pain but does not complain of any significant cervical pain at the bedside. He does not feel he has any significant difficulties with his upper extremities. Past Medical History Past Medical History: No Reported History History of Any Multi-Drug Resistant Organisms: None Reported Past Surgical History: Orthopedic Surgery Additional Past Surgical History / Comment(s): broke ankle years ago, has 3 screws. Past Anesthesia/Blood Transfusion Reactions: No Reported Reaction Past Psychological History: No Psychological Hx Reported Smoking Status: Current every day smoker Past Alcohol Use History: Occasional Past Drug Use History: Marijuana Medications and Allergies Home Medications Medication Instructions Recorded Confirmed Type No Known Home Medications 02/05/25 02/05/25 History Allergies Allergy/AdvReac Type Severity Reaction Status Date / Time No Known Allergies Allergy Verified 02/05/25 08:40 Physical Examination Physical exam: Patient is awake, alert, and oriented 3 Vital signs stable Good chest excursion with deep inspiration and expiration Examination of the cervical spine reveals skin is intact with no abrasions, lacerations, or bruises; no erythema, purulence or signs of infection Full range of motion of the cervical spine with adequate flexion, extension, and bilateral rotation Sheep Rancher strength, thumb strength, interosseous strength, biceps strength, triceps strength, and shoulder strength positive sustained bilaterally but he does seem to have some global weakness with his upper extremities Sheep Rancher strength and deltoid strength in the upper extremities 4/5 bilaterally Biceps reflex 2+ bilaterally and Brachioradialis reflexes 2+ bilaterally No upper extremity hyperreflexia bilaterally Hoffmans sign negative upper extremity bilaterally No signs or symptoms of DVT; no calf pain Results Pertinent studies: CT of the head and cervical spine taken on 02/04/2025: Vasogenic edema with loss of pimentel matter junction within the right temporal lobe/parietal region and which correlate for signs and symptoms of acute/subacute CVA; C5-6 and C6-7 severe spinal stenosis; no cervical compression fracture - Labs Labs: Abnormal Lab Results - Last 24 Hours (Table) 02/04/25 02/05/25 02/05/25 Range/Units 20:27 14:29 14:29 WBC 10.31 H (4.50-10.00) 10*3/uL RBC 6.23 H (4.40-5.60) 10*6/uL Hgb 17.5 H (13.0-17.0) g/dL Hct 53.6 H (39.6-50.0) % Basophils # 0.12 H (0.00-0.10) 10*3/uL PT 12.6 H (10.0-12.5) sec INR 1.2 H (<1.2) APTT (22.0-30.0) sec Uric Acid (3.5-8.5) mg/dL HDL Cholesterol 38.60 L (40.00-60.00) mg/dL 02/06/25 02/06/25 02/06/25 Range/Units 04:04 04:04 04:04 WBC 10.71 H (4.50-10.00) 10*3/uL RBC 6.20 H (4.40-5.60) 10*6/uL Hgb (13.0-17.0) g/dL Hct 52.3 H (39.6-50.0) % Basophils # 0.13 H (0.00-0.10) 10*3/uL PT 12.9 H (10.0-12.5) sec INR 1.2 H (<1.2) APTT 39.4 H (22.0-30.0) sec Uric Acid 10.6 H (3.5-8.5) mg/dL HDL Cholesterol (40.00-60.00) mg/dL H & H 02/04/25 02/05/25 02/06/25 Range/Units 20:27 14:29 04:04 Hgb 17.8 H 17.5 H 16.8 (13.0-17.0) g/dL Hct 52.2 H 53.6 H 52.3 H (39.6-50.0) % Coagulation 02/04/25 02/05/25 02/06/25 Range/Units 20:27 14:29 04:04 INR 1.1 1.2 H 1.2 H (<1.2) Result Diagrams: 02/06/25 04:04 02/04/25 20:27 Assessment and Plan Assessment: Assessment: Uncontrolled left upper extremity movements with seizure-like activities at presentation to the emergency department Right sided temporal lobe/parietal region stroke New onset atrial fibrillation C5-6 and C6-[address] imaging Hypertension (1) Cervical stenosis of spinal canal Current Visit: Yes Status: Acute Code(s): M48.02 - SPINAL STENOSIS, CERVICAL REGION SNOMED Code(s): 19631230 (2) Upper extremity weakness Current Visit: Yes Status: Acute Code(s): R29.898 - OTH SYMPTOMS AND SIGNS INVOLVING THE MUSCULOSKELETAL SYSTEM SNOMED Code(s): 910176717 (3) Hypertension Current Visit: Yes Status: Acute Code(s): I10 - ESSENTIAL (PRIMARY) HYPERTENSION SNOMED Code(s): 01786400 (4) CVA (cerebral vascular accident) Current Visit: Yes Status: Acute Code(s): I63.9 - CEREBRAL INFARCTION, UNSPECIFIED SNOMED Code(s): 844554710 (5) New onset a-fib Current Visit: Yes Status: Acute Code(s): I48.91 - UNSPECIFIED ATRIAL FIBRILLATION SNOMED Code(s): 64241226 Plan: Plan: 1. Patient was experiencing uncontrolled movements of his left upper extremity and seizure-like activity. He presented to [facility] for further evaluation. He was found to have a right sided stroke. He was also fou nd to be in atrial fibrillation. Currently he is being seen and managed by medicine, cardiology, and neurology. Neurology and cardiology is managing and balancing his anticoagulation given his recent stroke but also atrial fibrillation. They are currently planning for 2D echocardiogram. CT imaging of the cervical spine showed severe stenosis at C5-6 and C6-7, which could be better evaluated with MRI imaging. MRI imaging has been ordered by neurology and is currently pending. We will review the cervical MRI imaging once completed and discussed the results and plan of care with the patient. We did discuss in significant detail that given his recent stroke and also new onset atrial fibrillation, there is a balance between anticoagulation between neurology and cardiology. Given his other significant medical diagnoses and treatment and evaluation he is undergoing, we are not currently planning for surgical intervention at his cervical spine. Patient denies any neurological change in his upper extremities. He denies change in dexterity or penmanship. He is ambulating without significant difficulty. He denies specific upper extremity weakness or radiculopathy bilaterally. He has some mild cervical pain but is not complaining of pain at his cervical spine at the bedside. Currently, his findings on CT imaging of his cervical spine do not appear to require emergent treatment. Currently, we will plan to continue with conservative treatment for his cervical spine as he continues with further workup and evaluation with neurology and cardiology. Time with Patient: Greater than 30 (Including obtaining history, physical examination, reviewing of imaging, and dictation.)
--- NOTE | 2025-02-06 10:27 | P.PN ---
Subjective Progress Note Date: 02/06/25 HISTORY OF PRESENT ILLNESS: This is a 69-year-old male with no significant past medical history. However patient states he has not seen a physician in over 2 years. Patient also does not follow with a spinning machine operator. Patient does not follow with a spinning machine operator. We have been asked to see the patient in consultation for atrial fibrillation. Patient examined at the bedside. Patient presented to the hospital yesterday after waking up from a nap. He states that his left arm was moving uncontrollably and states it felt like it had a mind of its own he states that he went to sit in the chair and lost his balance and fell. He denies having any syncope. He denies any chest pain or pressure. Denies any shortness of breath. Denies any palpitations. Patient was found to be in atrial fibrillation. He denies any known history of atrial fibrillation. Case discussed with neurology, Dr. Luevano. He prefers to hold off on Eliquis for now. Dr. Luevano okay with IV heparin with no bolus and keep PTT between 45-60. DIAGNOSTICS: - EKG reveals atrial fibrillation with controlled ventricular rate - Chest xray: No acute process noted - Laboratory data: Troponin negative x 1 - Current home cardiac medications include none. -No previous echocardiogram, stress test, or cardiac catheterization available i n EMR for review 02/06/2025 Patient seen and examined. Patient has been transferred from the MedSurg floor to cardiac stepdown unit due to A-fib with RVR. Patient apparently had a seizure yesterday and during that seizure, he went into RVR. Patient is awake and alert during this assessment. He denies chest pain, no palpitations. He states he has had palpitations in the past but does not recall any yesterday. He has no previous seizure history. Patient remains in atrial fibrillation and rate is controlled. Patient is an active smoker. He drinks about 3 cups of coffee every morning. Regarding alcohol, he states he was a heavy alcohol consumer until July of this year. He now drinks a bottle of wine once every 1 to 3 weeks. Blood pressure 161/88, heart rate 68, pulse ox 97% on room air. Repeat blood work reveals WBC 10.7, hemoglobin 16.8. Uric acid 10.6. TSH 1.9, hemoglobin A1c 5.7, triglycerides 132, cholesterol 173, LDL 108. Echocardiogram reveals EF of 40 to 45%. PHYSICAL EXAM: VITAL SIGNS: Reviewed. GENERAL: Well-developed in no acute distress. HEENT: Head is normocephalic. Pupils are equal, round. Sclerae anicteric. Neck supple. No JVD or thyromegaly LUNGS: Respirations even and unlabored. Lungs essentially clear to auscultation bilaterally. HEART: Irregular rate and rhythm. S1 and S2 heard. ABDOMEN: Soft. Nondistended. Nontender. EXTREMITIES: No clubbing or cyanosis. Peripheral pulses intact. No lower extremity edema NEUROLOGIC: Awake and alert. Oriented x 3. ASSESSMENT: New onset atrial fibrillation with controlled ventricular rate, status post episode of RVR New onset of seizure activity Subacute ischemic stroke in the right temporoparietal region Hypertension Cardiomyopathy, unknown if ischemic or nonischemic, EF 40 to 45% PLAN: Continue Lipitor Discontinue heparin drip and start patient on Eliquis 5 mg twice a day once cleared by neurology Continue telemetry monitoring Will allow for permissive hypertension until neurology advises otherwise Further recommendations pending patient course Nurse practitioner note has been reviewed by physician. Signing provider agrees with the documented findings, assessment, and plan of care documented by ROOF SHINGLER as a scribe. Objective - Vital Signs Vital signs: Vital Signs Temp 97.9 F 02/06/25 07:41 Pulse 68 02/06/25 07:41 Resp 14 02/06/25 07:41 BP 161/88 02/06/25 07:41 Pulse Ox 97 02/06/25 07:41 FiO2 Intake & Output 02/05/25 02/06/25 02/06/25 18:59 06:59 18:59 Intake Total 720 191.56 Output Total 750 Balance 720 -558.44 Weight 97.9 kg Intake: IV 30 Invasive Line 1 10 Invasive Line 2 20 Intake, IV Titration 161.56 Amount Heparin Sod,Pork in 0.45% 161.56 NaCl 25,000 unit In 0.45 % NaCl 1 250ml.bag @ 10. 021 UNITS/KG/HR 10 mls/hr IV .Q24H [facility] Rx#: [id number] Oral 720 Output: Urine 750 Other: Voiding Method Toilet Urinal # Voids 2 1 - Labs CBC & Chem 7: 02/06/25 04:04 02/04/25 20:27 Labs: Abnormal Lab Results - Last 24 Hours (Table) 02/04/25 02/05/25 02/05/25 Range/Units 20:27 14:29 14:29 WBC 10.31 H (4.50-10.00) 10*3/uL RBC 6.23 H (4.40-5.60) 10*6/uL Hgb 17.5 H (13.0-17.0) g/dL Hct 53.6 H (39.6-50.0) % Basophils # 0.12 H (0.00-0.10) 10*3/uL PT 12.6 H (10.0-12.5) sec INR 1.2 H (<1.2) APTT (22.0-30.0) sec Uric Acid (3.5-8.5) mg/dL HDL Cholesterol 38.60 L (40.00-60.00) mg/dL 02/06/25 02/06/25 02/06/25 Range/Units 04:04 04:04 04:04 WBC 10.71 H (4.50-10.00) 10*3/uL RBC 6.20 H (4.40-5.60) 10*6/uL Hgb (13.0-17.0) g/dL Hct 52.3 H (39.6-50.0) % Basophils # 0.13 H (0.00-0.10) 10*3/uL PT 12.9 H (10.0-12.5) sec INR 1.2 H (<1.2) APTT 39.4 H (22.0-30.0) sec Uric Acid 10.6 H (3.5-8.5) mg/dL HDL Cholesterol (40.00-60.00) mg/dL
--- NOTE | 2025-02-06 12:57 | P.PN ---
Subjective Progress Note Date: 02/06/25 I am following-up with the patient and it seems the patient had seizure-like activity according to the nurse. Per nurse, yesterday in very late afternoon, he had shaking of the left arm then evolved to whole body shaking with LOC and episode lasted for 2 minutes. He was post-ictal confused but no tongue bite, urinary or bowel incontinence. As result, patient was given Ativan 1mg once then loaded with Keppra 1.5gm once then started on Keppra 500mg bid. Today patient is feeling better and no further seizure-like activity. No new neurological issues. Also, after speaking with cardiology N.P. yesterday and concern for stroke evolving into hemorrhagic conversion they switched from Eliquis to heparin drip Objective - Vital Signs Vital signs: Vital Signs Temp 97.9 F 02/06/25 12:00 Pulse 71 02/06/25 12:00 Resp 14 02/06/25 12:00 BP 177/92 02/06/25 12:00 Pulse Ox 98 02/06/25 12:00 FiO2 Intake & Output 02/05/25 02/06/25 02/06/25 18:59 06:59 18:59 Intake Total 720 191.56 Output Total 750 Balance 720 -558.44 Weight 97.9 kg Intake: IV 30 Invasive Line 1 10 Invasive Line 2 20 Intake, IV Titration 161.56 Amount Heparin Sod,Pork in 0.45% 161.56 NaCl 25,000 unit In 0.45 % NaCl 1 250ml.bag @ 10. 021 UNITS/KG/HR 10 mls/hr IV .Q24H [facility] Rx#: [id number] Oral 720 Output: Urine 750 Other: Voiding Method Toilet Urinal Urinal # Voids 2 1 - Exam GENERAL: The patient is lying in bed and is not in acute distress. NEUROLOGICAL: Higher mental function: The patient is awake, alert, oriented to self, place and time. Patient is following commands. No aphasia. It appear patient at time is neglect the left upper extremity. Cranial nerves: The pupils are round, equal and reactive to light and accommodation. Visual saleh: Left homonymous upper quandrant anopsia to confrontation on examination and this was performed twice. Extraocular movement is intact no nystagmus is noted. Facial sensation is normal to touch throughout. The facial strength is normal throughout. Hearing is mildly to moderately decreased bilaterally to hand rub. Tongue is midline and moved [id number] without any difficulty. No dysarthria is noted. Shoulder shrug is normal bilaterally. Motor: The strength is 5 over 5 throughout. Normal tone and bulk. Cerebellum: Normal finger to nose bilaterally. Sensation: Sensation is normal to touch throughout. Some of the workup during this hospital visit consisted of: Lipid panel: TG 132, cholestrol 173, LDl 108 and HDL 38 TSH: 1.9 HbA1c: 5.7 CT of the head and cervical spine is reported as vasogenic edema with loss of pimentel-white matter junction within the right temporal parietal region correlate for signs symptoms for acute/subacute CVA. No evidence of intracranial hemorrhage. No evidence of cervical spine fracture. Moderate multilevel degenerative disc disease. I personally reviewed the see TE and I feel patient does not have hypoattenuation over the predominantly the right temporal region CT angiography of the head and neck is reported as negative CT angiography of the head and neck but shows critical spinal canal stenosis C5-C6 and C6-C7 recommend MRI of the cervical spine to evaluate for myelopathy. 2D echo: Mild impaired LV function with EF 40-45% - Labs CBC & Chem 7: 02/06/25 04:04 02/04/25 20:27 Labs: Abnormal Lab Results - Last 24 Hours (Table) 02/04/25 02/05/25 02/05/25 Range/Units 20:27 14:29 14:29 WBC 10.31 H (4.50-10.00) 10*3/uL RBC 6.23 H (4.40-5.60) 10*6/uL Hgb 17.5 H (13.0-17.0) g/dL Hct 53.6 H (39.6-50.0) % Basophils # 0.12 H (0.00-0.10) 10*3/uL PT 12.6 H (10.0-12.5) sec INR 1.2 H (<1.2) APTT (22.0-30.0) sec Uric Acid (3.5-8.5) mg/dL HDL Cholesterol 38.60 L (40.00-60.00) mg/dL 02/06/25 02/06/25 02/06/25 Range/Units 04:04 04:04 04:04 WBC 10.71 H (4.50-10.00) 10*3/uL RBC 6.20 H (4.40-5.60) 10*6/uL Hgb (13.0-17.0) g/dL Hct 52.3 H (39.6-50.0) % Basophils # 0.13 H (0.00-0.10) 10*3/uL PT 12.9 H (10.0-12.5) sec INR 1.2 H (<1.2) APTT 39.4 H (22.0-30.0) sec Uric Acid 10.6 H (3.5-8.5) mg/dL HDL Cholesterol (40.00-60.00) mg/dL 02/06/25 Range/Units 10:20 WBC (4.50-10.00) 10*3/uL RBC (4.40-5.60) 10*6/uL Hgb (13.0-17.0) g/dL Hct (39.6-50.0) % Basophils # (0.00-0.10) 10*3/uL PT (10.0-12.5) sec INR (<1.2) APTT 47.3 H (22.0-30.0) sec Uric Acid (3.5-8.5) mg/dL HDL Cholesterol (40.00-60.00) mg/dL Assessment and Plan Assessment: This is a 69-year-old gentleman who presents emergency department because of abnormal movement of the left upper extremity. In our ED CT shows hypodensity over the right temporoparietal region concerning for stroke. Also was noted that he has new onset A-fib. Patient has not seen a couple years Acute to subacute ischemic stroke over the right temporoparietal region but I feel its mostly temporal. No IV TNKase since outside the window and the risk outweighed the benefit. New onset seizure likely due to above New onset A-fib and currently on IV heparin. Hypertension Severe cervical stenosis per reading radiologist on the CT History of gout Plan: In the ED the patient was given aspirin 325 once and was started on aspirin 81 mg daily. Cardiology yesterday placed him on Eliquis for A-fib but after speaking with them about concern with hemorrhagic conversion they switched to IV heparin drip. Patient is on Lipitor 80 mg nightly. Pending MRI of the brain. Neurochecks Cardiac monitoring PT OT and HUNTING SALES LEADER are consulted Recommend normotensive. For his new onset seizure, Continue Keppra 500mg bid. Seizure precauation and pad. Per [place] DMV because of seizures, avoid driving for 6 months until seizure free, avoid heights, avoid swimming unassisted or use heavy machinery. Ordered Routine EEG. Cardiology is on board Pending MRI of the cervical spine to rule out any severe stenosis and I consulted orthopedic surgery team Dr. Thomas and they recommended medical management. Will defer the rest of the medical management to primary other specialist For DVT prophylaxis: On heparin drip. The plan is discussed with patient and his nurse. Time with Patient: Less than 30
--- NOTE | 2025-02-06 14:01 | MR ---
EXAMINATION TYPE: MR brain/cspine wo/w DATE OF EXAM: 02/06/2025 1:34 PM COMPARISON: CT. CLINICAL INDICATION: Male, 69 years old with history of stroke. weakness; PHH, Weakness, seizure, str mary. TECHNIQUE: Multi planar, multi sequence imaging was performed through the brain including: T1, T2, Inversion rec overy, Diffusion weighted imaging, and gradient echo imaging. No gadolinium was given. Multi planar, multi sequence imaging was performed utilizing: T1-weighted, T2-weighted, and turbo inv ersion recovery imaging of the cervical spine. IV Contrast: 10 mL Gadobutrol FINDINGS: Scattered restricted diffusion within the right parietal temporal and right insular cortex. There is Mild cerebral atrophy with proportional dilation of ventricular system. Scattered foci of high T2 s ignal intensity are seen within the periventricular white matter. Midline structures show no abnormal ity. The susceptibility weighted images do not reveal any evidence for micro-hemorrhage. Suspected sl ow flow artifact in the left transverse sinus as a region of the sinuses pain on 02/05/2025 CTA head. The bone marrow signal is within normal limits. Paranasal sinuses and mastoid air cells: No significant paranasal sinus disease. Visualized orbits: Orbital contents are intact. Alignment: The cervical vertebral bodies have preserved heights. Alignment is within normal limits gi michaela patient positioning. Bones: Bone signal is within normal limits. No abnormal bone marrow edema on inversion recovery seque nces. Cord: The spinal cord is unremarkable with regards to their signal intensity and morphology. Discs: Multilevel disc desiccation is present. C2-C3: A disc osteophyte complex is present which minimally narrows the ventral subarachnoid space. No neural foraminal stenosis. C3-C4: A disc osteophyte complex is present which minimally narrows the ventral subarachnoid space. Bilateral facet and uncovertebral joint arthropathy are present with severe left and moderate neural foraminal stenosis. C4-C5: A disc osteophyte complex is present which minimally narrows the ventral subarachnoid space. Bilateral facet and uncovertebral joint arthropathy are present with mild bilateral neural foraminal stenosis. C5-C6: A disc osteophyte complex is present with moderate spinal canal stenosis. Bilateral facet and uncovertebral joint arthropathy are present with moderate bilateral neural foraminal stenosis. C6-C7: A disc osteophyte complex is present with mild to moderate spinal canal stenosis. Bilateral f acet and uncovertebral joint arthropathy are present with moderate to severe bilateral neural foramin al stenosis. C7-T1: No significant disc pathology. The spinal canal is patent. No neural foraminal stenosis. Other: None. IMPRESSION: Brain: 1. Acute/subacute CVA involving the right parietal, right temporal lobes and right insular cortex. 2. Nonspecific white matter changes, likely secondary to small vessel ischemic disease. Cervical: 1. Moderate disc degeneration with associated osteoarthritic changes. 2. C5-C6 moderate spinal canal stenosis secondary disc osteophyte complex. Severe bilateral neural f oraminal stenosis at this level. 3. C3-C4 severe left and moderate right neural foraminal stenosis. Findings communicated to Pawan Menendez 02/06/2025 1:[address] Danielito Acosta. [facility], , 02/06/2025 1:59 PM
[2025-02-06] MEDS: CHLORTHALIDONE 25 MG TAB PO SCH (16:07)
--- NOTE | 2025-02-06 16:50 | P.PN ---
Progress Note - Text Progress Note Date: 02/06/25 Chief Complaint: Left arm weakness This is a pleasant 69-year-old patient with a family doctor. He did follow-up with a physician before and was on medication for gout. He also was prescribed other pills but he said he is not a prescription present the foot decided not to take it. Patient is drinking heavy alcohol till about 6 months ago. Smokes a pack a day for last 50 years. Yesterday he noticed that his left arm was flailing about lasted about 15 seconds. Then it became better. This morning was noted by the speech therapist and the aide that is left arm was not functioning fully. Patient denies any change in his speech. No change in walking. He did complain of some pain of the back of the head yesterday. February 06: Patient yesterday had an episode of his left arm flailing again. Focal seizures. Keppra was added. Seen by orthopedics. Not for any surgical intervention currently. Patient on IV heparin. Will switch over to Eliquis this evening. For blood pressure will start patient on Cozaar 100 mg nightly and chlorthalidone. Patient uric acid elevated will add allopurinol. Discussed at length with the patient importance of taking his medications. Patient's younger brother is present. No changes left arm weakness. Brain cervical spine MRI done. Active Medications Allopurinol (Allopurinol 100 Mg Tab) 200 mg PO DAILY [facility] Last Admin: 02/06/25 16:08 Dose: 200 mg Apixaban (Apixaban 5 Mg Tab) 5 mg PO BID [facility]; Protocol Aspirin (Aspirin 81 Mg) 81 mg PO DAILY [facility] Last Admin: 02/06/25 07:46 Dose: 81 mg Atorvastatin Calcium (Atorvastatin 80 Mg Tab) 80 mg PO HS [facility] Last Admin: 02/05/25 19:39 Dose: 80 mg Chlorthalidone (Chlorthalidone 25 Mg Tab) 25 mg PO DAILY [facility] Last Admin: 02/06/25 16:07 Dose: 25 mg Heparin Sodium (Porcine) (Heparin Sodium 1,000 Un/Ml (10ml Vl)) 0 unit IV PER PROTOCOL PRN; Protocol PRN Reason: Low PTT Stop: 02/06/25 21:00 Heparin Sodium/Sodium Chloride (25,000 unit/ Sodium Chloride) 250 mls @ 10 mls/hr IV .Q24H [facility]; Protocol Stop: 02/06/25 21:00 Last Titration: 02/06/25 04:46 Dose: 15.021 units/kg/hr, 14.989 mls/hr Levetiracetam (Levetiracetam 500 Mg Tab) 500 mg PO Q12HR [facility] Losartan Potassium (Losartan 50 Mg Tab) 100 mg PO HS [facility] Nicotine (Nicotine 21mg/24hr Patch) 1 patch TRANSDERM DAILY [facility] Last Admin: 02/06/25 07:46 Dose: 1 patch Social history: Lives alone. Was drinking heavy alcohol till about 6 months ago. 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 Smokes a pack a day for last 50 years. Physical examination: VITAL SIGNS: 97.9, 71, 14, 177 x 92, 98% room air GENERAL: BMI 29.8, comfortable EYES: Pupils equal. Conjunctiva misha l. HEENT: External appearance of nose and ears normal, oral cavity grossly normal. NECK: JVD not raised; masses not palpable. HEART: First and second heart sounds are normal; no edema. LUNGS: Respiratory rate normal; decreased breath sound. ABDOMEN: Soft, nontender, liver spleen not palpable, no masses palpable. PSYCH: Alert and oriented x3; mood and affect misha l. MUSCULOSKELETAL:No Clubbing/cyanosis;muscles-grossly intact NEUROLOGICAL: Cranial nerves grossly intact; no facial asymmetry, left arm weakness power 4/5. Decreased left hand tractor driver.. INVESTIGATIONS, reviewed in the clinical context: February 06: White count 10.7 hemoglobin 16.8 platelets 214 uric acid 10.6 LDL 108 Brain cervical spine MRI: Acute/subacute CVA Ronda involving the right parietal right temporal lobe and right insular cortex. 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 C5-C6 moderate spinal canal stenosis secondary to disc osteophyte complex. Severe bilateral neural foraminal stenosis at this level. C3-C4 severe left and moderate right neural foraminal stenosis. February 05, 2025: White count 10.3 hemoglobin 17.5 platelets 230 potassium 4.6 BUN 15 creatinine 0.72 Troponin I less than 0.012 EKG tracing personally reviewed by me-atrial fibrillation. Rate [address]: Vasogenic edema with loss of pimentel-white matter junction within the right temporal lobe parietal region correlate to signs symptoms of acute/subacute CVA. Moderate level DJD Dx disease. Head neck CTA: Negative critical spinal canal stenosis C5-C6, C6-C7. 2D echocardiogram: EF 45 to 50%. Inferoseptal apex hypokinetic. Assessment and plan: - Acute stroke in the right temporal parietal lobe region. Symptoms are fluctuated Aspirin. Lipitor. Neurochecks. Neurology following. MRI: Acute/subacute CVA Ronda involving the right parietal right temporal lobe and right insular cortex - Essential hypertension. Add losartan 100 mg nightly. Chlorthalidone 25 mg a day - hyperlipidemia Lipitor 80 mg nightly - Inferoseptal apex hypokinetic. Cardiology following. Will need further workup. - Chronic nicotine dependence, cigarette smoker Nicotine patch 21 -Hyperuricemia, uncontrolled with a prior diagnosis of gout Start allopurinol 200 mg a day - Persistent atrial fibrillation, rate controlled IV heparin per cardiology, stop tonight Start Eliquis 5 mg twice daily tonight - Cervical: Moderate disc DJD with associated osteophytic changes. C5-C6 moderate spinal canal stenosis secondary to disc osteophyte complex. Severe bilateral neural foraminal stenosis at this level. C3-C4 severe left and moderate right neural foraminal stenosis. Seen by the team of 08, at Dr. Thomas. For outpatient workup. No current intervention - IV heparin monitoring per protocol - Full code Past Medical History Past Medical History: No Reported History History of Any Multi-Drug Resistant Organisms: None Reported Past Surgical History: Orthopedic Surgery Additional Past Surgical History / Comment(s): broke ankle years ago, has 3 screws. Past Anesthesia/Blood Transfusion Reactions: No Reported Reaction Past Psychological History: No Psychological Hx Reported Smoking Status: Current every day smoker Past Alcohol Use History: Occasional Past Drug Use History: Marijuana
--- NOTE | 2025-02-06 17:45 | P.PN ---
Progress Note - Text Progress Note Date: 02/06/25 Orthopedic spine: History of present illness: Patient is a very pleasant 69-year-old male who is seen at the bedside for follow-up evaluation for cervical spine following completion of his cervical MRI. This has been reviewed by myself and Dr. Yohan Thomas. MRI results are discussed with the patient in detail. He does have significant change at his cervical spine most significant C3-4, C5-6, and C6-7. He is not having neurological change in his upper extremities. His symptoms have remained stable. Pertinent studies: MRI of the brain and cervical spine taken on 02/06/2025: C3-4 disc osteophyte complex with bilateral facet and uncovertebral joint spondylosis resulting in central canal stenosis with severe left and moderate right neuroforaminal stenosis; C4-5 disc osteophyte complex with bilateral facet and uncovertebral cyst with mild bilateral neuroforaminal stenosis; C5-6 degenerative disc disease with disc resulting in severe spinal canal stenosis and foraminal stenosis; C6/7 degenerative disc disease with disc osteophyte complex and bilateral facet and uncovertebral joint spondylosis resulting in severe central canal stenosis with severe bilateral foraminal stenosis; acute/subacute CVA involving the right parietal, right temporal lobes and right insular cortex; nonspecific white matter changes Plan: 1. He does have significant change at his cervical spine most significant C3-4, C5-6, and C6-7. He is not having neurological change in his upper extremities. His symptoms have remained stable. He is, however, undergoing further treatment and evaluation for acute/subacute CVA and new onset atrial fibrillation. He will continue with treatment with neurology and cardiology. Follow-up in the outpatient setting for further evaluation in regards to his cervical spine. Patient may follow-up with Nilton Green PA-C or Dr. Yohan Thomas at [facility] in 2-3 weeks following discharge. Patient please feel this is a good plan of care.
[2025-02-06] MEDS: APIXABAN 5 MG TAB PO SCH (21:12)
[2025-02-06] MEDS: LOSARTAN 50 MG TAB PO SCH (21:12)
--- NOTE | 2025-02-06 23:30 | EEG ---
ELECTROENCEPHALOGRAM REPORT CLINICAL HISTORY: This is a 69-year-old gentleman who has abnormal movement of the left upper extremity with new onset seizure-like activity seen on 02/05/2025. The video EEG is obtained to evaluate for seizure epileptiform activity. RELEVANT MEDICATION: 1. Keppra. 2. Ativan. EEG TYPE: This is a routine 21 channel EEG with video using the 10/20 electrode placement system. DESCRIPTION: Wakefulness is only obtained. During the awake state, the posterior-dominant rhythm consists of [id number] voltage of 9 hertz activity that is well modulated and well sustained. There is no physiological stage 2 sleep architecture. There is focal slowing over the right temporal/parietal and central lesion. Interictal and ictal are none. ACTIVATION PROCEDURE: Photic stimulation and hyperventilation are not performed. CLINICAL INTERPRETATION: This is an abnormal routine EEG during awake state. The background is normal. There is focal slowing over the right temporal/central parietal region which is suggestive of cerebral dysfunction in the involved region. There is no epileptiform discharge or seizure on the EEG. Lack of epileptiform discharge does not rule out underlying epilepsy. Clinical correlation is recommended. MMODL / IJN: [id number] /
[2025-02-07 00:09] VITALS: RESP 18
[2025-02-07 09:46] VITALS: BP 155/90; PULSE 80; TEMP 97.6
--- NOTE | 2025-02-07 11:18 | P.PN ---
Subjective Progress Note Date: 02/07/25 Patient seen at bedside and he feels about the same. Per the patient's nurse no further seizures. He had an MRI of the brain which shows a moderate to large stroke over the right MCA territory. Objective - Vital Signs Vital signs: Vital Signs Temp 97.6 F 02/07/25 09:45 Pulse 80 02/07/25 09:45 Resp 18 02/07/25 09:45 BP 155/90 02/07/25 09:45 Pulse Ox 96 02/07/25 09:45 FiO2 Intake & Output 02/06/25 02/07/25 02/07/25 18:59 06:59 18:59 Intake Total 540 88.44 445 Balance 540 88.44 445 Weight 95.9 kg Intake: IV 5 Invasive Line 2 5 Intake, IV Titration 88.44 Amount Heparin Sod,Pork in 0.45% 88.44 NaCl 25,000 unit In 0.45 % NaCl 1 250ml.bag @ 10. 021 UNITS/KG/HR 10 mls/hr IV .Q24H BROOKS Rx#: [id number] Oral 540 440 Other: Voiding Method Urinal Urinal Urinal # Voids 2 1 # Bowel Movements 1 - Exam GENERAL: The patient is lying in bed and is not in acute distress. NEUROLOGICAL: Higher mental function: The patient is awake, alert, oriented to self, place and time. Patient is following commands. No aphasia. It appear patient at time is neglect the left upper extremity. Cranial nerves: The pupils are round, equal and reactive to light and accommo dation. Visual saleh: Left homonymous upper quandrant anopsia to confrontation on examination and this was performed twice. Extraocular movement is intact no nystagmus is noted. Facial sensation is normal to touch throughout. The facial strength is normal throughout. Hearing is mildly to moderately decreased bilaterally to hand rub. Tongue is midline and moved [id number] without any difficulty. No dysarthria is noted. Shoulder shrug is normal bilaterally. Motor: The strength is 5 over 5 throughout. Normal tone and bulk. Cerebellum: Normal finger to nose bilaterally. Sensation: Sensation is normal to touch throughout. Some of the workup during this hospital visit consisted of: Lipid panel: TG 132, cholestrol 173, LDl 108 and HDL 38 TSH: 1.9 HbA1c: 5.7 CT of the head and cervical spine is reported as vasogenic edema with loss of pimentel-white matter junction within the right temporal parietal region correlate for signs symptoms for acute/subacute CVA. No evidence of intracranial hemorrhage. No evidence of cervical spine fracture. Moderate multilevel degenerative disc disease. I personally reviewed the see TE and I feel patient does not have hypoattenuation over the predominantly the right temporal region CT angiography of the head and neck is reported as negative CT angiography of the head and neck but shows critical spinal canal stenosis C5-C6 and C6-C7 recommend MRI of the cervical spine to evaluate for myelopathy. 2D echo: Mild impaired LV function with EF 40-45% MRI of the brain is reported as acute/subacute CVA involving the right occipital, temporal and insular cortex. I felt it was over the right MCA as stated above as well as a small portion over the right occipital. MRI cervical spine is reported as moderate disc degeneration with associated o steoarthritic changes. C5-C6 moderate spinal stenosis secondary due to osteophyte complex. Severe bilateral neuroforaminal stenosis at this level. Routine EEG is abnormal. The background is normal. There is focal slowing over the right temporal central parietal region which is suggestive of cerebral dysfunction involved region. There is no epileptiform discharges or seizure on the EEG. - Labs CBC & Chem 7: 02/06/25 04:04 02/04/25 20:27 Assessment and Plan Assessment: This is a 69-year-old gentleman who presents emergency department because of abnormal movement of the left upper extremity. In our ED CT shows hypodensity over the right temporoparietal region concerning for stroke. Also was noted that he has new onset A-fib. Patient has not seen a couple years Acute to subacute ischemic stroke over the Right MCA (temporoparietal region) and small I felt was in right occipital. Stroke is embolic in etiology and likely due to New-Onset Atrial fibrillation. New onset seizure likely due to above--stable New onset A-fib and currently on IV heparin. Hypertension Severe cervical stenosis over middle cervical region History of gout Plan: The patient is on ASA 81mg daily. The primary team placed him on Eliquis 5mg bid. Patient is on Lipitor 80 mg nightly. Neurochecks Cardiac monitoring PT OT and CRYPTOLOGIST are consulted Recommend normotensive. For his new onset seizure, Continue Keppra 500mg bid. Seizure precauation and pad. Per [place] DMV because of seizures, avoid driving for 6 months until seizure free, avoid heights, avoid swimming unassisted or use heavy machinery. Cardiology is on board Orthopedic surgery team Dr. Thomas is on board and recommended medical management at this time and follow-up as outpatient. Will defer the rest of the medical management to primary other specialist For DVT prophylaxis: On Eliquis Upon discharge, recommend the patient to follow-up with outpatient neurologist within 2 weeks. Will follow-up with patient sporadically. Dr. Marshall will resume Neurology service this Sunday A.M. (02/09/2025). Time with Patient: Less than 30
--- NOTE | 2025-02-07 12:59 | P.PN ---
Subjective HISTORY OF PRESENT ILLNESS: This is a 69-year-old male with no significant past medical history. However patient states he has not seen a physician in over 2 years. Patient also does not follow with a pipeline gang supervisor. Patient does not follow with a pipeline gang supervisor. We have been asked to see the patient in consultation for atrial fibrillation. Daya ent examined at the bedside. Patient presented to the hospital yesterday after waking up from a nap. He states that his left arm was moving uncontrollably and states it felt like it had a mind of its own he states that he went to sit in the chair and lost his balance and fell. He denies having any syncope. He denies any chest pain or pressure. Denies any shortness of breath. Denies any palpitations. Patient was found to be in atrial fibrillation. He denies any known history of atrial fibrillation. DIAGNOSTICS: - EKG reveals atrial fibrillation with controlled ventricular rate - Chest xray: No acute process noted - Laboratory data: Troponin negative x 1 - Current home cardiac medications include none. -No previous echocardiogram, stress test, or cardiac catheterization available in EMR for review 02/06/2025 Patient seen and examined. Patient has been transferred from the Medr floor to cardiac stepdown unit due to A-fib with RVR. Patient apparently had a seizure yesterday and during that seizure, he went into RVR. Patient is awake and alert during this assessment. He denies chest pain, no palpitations. He states he has had palpitations in the past but does not recall any yesterday. He has no previous seizure history. Patient remains in atrial fibrillation and rate is controlled. Patient is an active smoker. He drinks about 3 cups of coffee every morning. Regarding alcohol, he states he was a heavy alcohol consumer until July of this year. He now drinks a bottle of wine once every 1 to 3 weeks. Blood pressure 161/88, heart rate 68, pulse ox 97% on room air. Repeat blood work reveals WBC 10.7, hemoglobin 16.8. Uric acid 10.6. TSH 1.9, hemoglobin A1c 5.7, triglycerides 132, cholesterol 173, LDL 108. Echocardiogram reveals EF of 40 to 45%. 02/07/2025 Patient examined this morning at the bedside. Patient currently denies chest pain or pressure. He denies shortness of breath. He states that he feels like he is getting stronger today. He does report some pain in his left hand. Vital signs are stable. Telemetry reveals atrial fibrillation with controlled ventricular rate. PHYSICAL EXAM: VITAL SIGNS: Reviewed. GENERAL: Well-developed in no acute distress. HEENT: Head is normocephalic. Pupils are equal, round. Sclerae anicteric. Mucous membranes of the mouth are moist. Neck supple. No JVD or thyromegaly LUNGS: Respirations even and unlabored. Lungs essentially clear to auscultation bilaterally. HEART: Irregular rate and rhythm. S1 and S2 heard. ABDOMEN: Soft. Nondistended. Nontender. EXTREMITIES: Normal range of motion. No clubbing or cyanosis. Peripheral pulses intact. No lower extremity edema NEUROLOGIC: Awake and alert. Oriented x 3. ASSESSMENT: New onset atrial fibrillation with controlled ventricular rate, status post episode of RVR New onset of seizure activity Subacute ischemic stroke in the right temporoparietal region Hypertension Cardiomyopathy, unknown if ischemic or nonischemic, EF 40 to 45% PLAN: Continue current cardiac medications Continue anticoagulation with Eliquis Continue telemetry monitoring Continue to monitor blood pressure Await further recommendations from neurology Further recommendations pending patient course Nurse practitioner note has been reviewed by physician. Signing provider agrees with the documented findings, assessment, and plan of care documented by CRAFT RECRUITER as a scribe. Objective - Vital Signs Vital signs: Vital Signs Temp 97.6 F 02/07/25 09:45 Pulse 80 02/07/25 09:45 Resp 18 02/07/25 09:45 BP 155/90 02/07/25 09:45 Pulse Ox 96 02/07/25 09:45 FiO2 Intake & Output 02/06/25 02/07/25 02/07/25 18:59 06:59 18:59 Intake Total 540 88.44 667 Balance 540 88.44 667 Weight 95.9 kg Intake: IV 5 Invasive Line 2 5 Intake, IV Titration 88.44 Amount Heparin Sod,Pork in 0.45% 88.44 NaCl 25,000 unit In 0.45 % NaCl 1 250ml.bag @ 10. 021 UNITS/KG/HR 10 mls/hr IV .Q24H [facility]OOKS Rx#: [id number] Oral 540 662 Other: Voiding Method Urinal Urinal Urinal # Voids 2 1 # Bowel Movements 1 - Labs CBC & Chem 7: 02/06/25 04:04 02/04/25 20:27
--- NOTE | 2025-02-07 18:59 | P.DS ---
Providers Date of admission: 02/05/25 05:04 Expected date of discharge: 02/07/25 Attending physician: Zach Bartlett Consults: 02/05/25 00:29 Consult Physician Routine Consulting Provider: Quinton Mason Consult Reason/Comments: new onset afib, cva Do you want consulting provider notified?: Yes, Notify in am 02/05/25 00:30 Consult Physician Routine Consulting Provider: Pawan Luevano Consult Reason/Comments: CVA Do you want consulting provider notified?: Yes, Notify in am 02/05/25 10:12 Consult Physician Routine Consulting Provider: Paul Morelos Consult Reason/Comments: Podiatry-toenails Do you want consulting provider notified?: Yes 02/05/25 14:38 Consult Physician Routine Consulting Provider: Gerard Thomas Consult Reason/Comments: cervical stenosis on ct Do you want consulting provider notified?: Yes Primary care physician: Stated None Hospital Course: Chief Complaint: Left arm weakness This is a pleasant 69-year-old patient with a family doctor. He did follow-up with a physician before and was on medication for gout. He also was prescribed other pills but he said he is not a prescription present the foot decided not to take it. Patient is drinking heavy alcohol till about 6 months ago. Smokes a pack a day for last 50 years. Yesterday he noticed that his left arm was flailing about lasted about 15 seconds. Then it became better. This morning was noted by the speech therapist and the aide that is left arm was not functioning fully. Patient denies any change in his speech. No change in walking. He did complain of some pain of the back of the head yesterday. February 06: Patient yesterday had an episode of his left arm flailing again. Focal seizures. Keppra was added. Seen by orthopedics. Not for any surgical intervention currently. Patient on IV heparin. Will switch over to Eliquis this evening. For blood pressure will start patient on Cozaar 100 mg nightly and chlorthalidone. Patient uric acid elevated will add allopurinol. Discussed at length with the patient importance of taking his medications. Patient's younger brother is present. No changes left arm weakness. Brain cervical spine MRI done. February 07: No further focal seizure. Cleared by cardiology and neurology. Patient follow-up with cardiology, orthopedics, neurology outpatient. Discussed with patient. Counseled about importance of taking his medications. Outpatient physical therapy for his left arm. Discussion and discharge planning more than 35 minutes Social history: Lives alone. Was drinking heavy alcohol till about 6 months ago. 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 Smokes a pack a day for last 50 years. Physical examination: VITAL SIGNS: 97.6, 80, 18, 155 x 90, 96% room air GENERAL: BMI 29.8, comfortable EYES: Pupils equal. Conjunctiva misha l. HEENT: External appearance of nose and ears normal, oral cavity grossly normal. NECK: JVD not raised; masses not palpable. HEART: First and second heart sounds are normal; no edema. LUNGS: Respiratory rate normal; decreased breath sound. ABDOMEN: Soft, nontender, liver spleen not palpable, no masses palpable. PSYCH: Alert and oriented x3; mood and affect misha l. MUSCULOSKELETAL:No Clubbing/cyanosis;muscles-grossly intact NEUROLOGICAL: Cranial nerves grossly intact; no facial asymmetry, left arm weakness power 4/5. Decreased left hand case therapist.. INVESTIGATIONS, reviewed in the clinical context: February 06: White count 10.7 hemoglobin 16.8 platelets 214 uric acid 10.6 LDL 108 Brain cervical spine MRI: Acute/subacute CVA Ronda involving the right parietal right temporal lobe and right insular cortex. 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 C5-C6 moderate spinal canal stenosis secondary to disc osteophyte complex. Severe bilateral neural foraminal stenosis at this level. C3-C4 severe left and moderate right neural foraminal stenosis. February 05, 2025: White count 10.3 hemoglobin 17.5 platelets 230 potassium 4.6 BUN 15 creatinine 0.72 Troponin I less than 0.012 EKG tracing personally reviewed by me-atrial fibrillation. Rate [address]: Vasogenic edema with loss of pimentel-white matter junction within the right temporal lobe parietal region correlate to signs symptoms of acute/subacute CVA. Moderate level DJD Dx disease. Head neck CTA: Negative critical spinal canal stenosis C5-C6, C6-C7. 2D echocardiogram: EF 45 to 50%. Inferoseptal apex hypokinetic. Assessment and plan: - Acute stroke in the right temporal parietal lobe region. Aspirin. Lipitor. Neurochecks. Neurology following. MRI: Acute/subacute CVA Ronda involving the right parietal right temporal lobe and right insular cortex Follow-up with Dr. Pawan Nazario neurology outpatient - Essential hypertension. losartan 100 mg nightly. Chlorthalidone 25 mg a day - hyperlipidemia Lipitor 80 mg nightly - Inferoseptal apex hypokinetic. Cardiology following. Will need further workup. Follow-up with Dr. Olivas outpatient - Chronic nicotine dependence, cigarette smoker Nicotine patch 21 -Hyperuricemia, uncontrolled with a prior diagnosis of gout allopurinol 200 mg a day - Persistent atrial fibrillation, rate controlled IV heparin given initially Start Eliquis 5 mg twice daily tonight - Focal seizures the left arm from the area of acute stroke. Keppra Follow outpatient with Dr. Nazario, neurology - Cervical: Moderate disc DJD with associated osteophytic changes. C5-C6 moderate spinal canal stenosis secondary to disc osteophyte complex. Severe bilateral neural foraminal stenosis at this level. C3-C4 severe left and moderate right neural foraminal stenosis. Seen by the team of 08, at Dr. Thomas. For outpatient workup. No current intervention - Full code Past Medical History Past Medical History: No Reported History History of Any Multi-Drug Resistant Organisms: None Reported Past Surgical History: Orthopedic Surgery Additional Past Surgical History / Comment(s): broke ankle years ago, has 3 screws. Past Anesthesia/Blood Transfusion Reactions: No Reported Reaction Past Psychological History: No Psychological Hx Reported Smoking Status: Current every day smoker Past Alcohol Use History: Occasional Past Drug Use History: Marijuana Plan - Discharge Summary Discharge Rx Participant: Yes New Discharge Prescriptions: New Aspirin 81 mg PO DAILY tab Losartan [Cozaar] 100 mg PO HS #60 tab Apixaban [Eliquis] 5 mg PO BID #60 tab Nicotine 21Mg/24Hr Patch [Habitrol] 1 patch TRANSDERM DAILY #30 patch Chlorthalidone [Hygroton] 25 mg PO DAILY #30 tab levETIRAcetam [Keppra] 500 mg PO Q12HR #60 tab Atorvastatin [Lipitor] 80 mg PO HS #30 tab allopurinoL [Zyloprim] 200 mg PO DAILY #60 tab Discharge Medication List Apixaban [Eliquis] 5 mg PO BID #60 tab 02/07/25 [Rx] Aspirin 81 mg PO DAILY tab 02/07/25 [Rx] Atorvastatin [Lipitor] 80 mg PO HS #30 tab 02/07/25 [Rx] Chlorthalidone [Hygroton] 25 mg PO DAILY #30 tab 02/07/25 [Rx] Losartan [Cozaar] 100 mg PO HS #60 tab 02/07/25 [Rx] Nicotine 21Mg/24Hr Patch [Habitrol] 1 patch TRANSDERM DAILY #30 patch 02/07/25 [Rx] allopurinoL [Zyloprim] 200 mg PO DAILY #60 tab 02/07/25 [Rx] levETIRAcetam [Keppra] 500 mg PO Q12HR #60 tab 02/07/25 [Rx] Follow up Appointment(s)/Referral(s): Saúl Olivas MD [STAFF PHYSICIAN] - 1 Week (Please call to make a post hospi yudith follow up appointment) Nilton Green PAC [PHYSICIAN HYDRAULIC PUNCH PRESS OPERATOR] - 3 Weeks (Patient may follow-up with Nilton Green PA-C or Dr. Yohan Thomas at [facility] in 2-3 weeks following discharge. Please call to make a post hospital follow up appointment ) Pawan Nazario MD [STAFF PHYSICIAN] - 10 Days (Please call to make a post hospital follow up appointment ) Rogers Stahl MD [REFERRING] - 1 Week (Please call to make a post hospital follow up appointment ) Patient Instructions/Handouts: Seizure/Epilepsy Discharge Instructions & Follow-Up, A-fib (Atrial Fibrillation) (DC), Ischemic Stroke (DC) Discharge Disposition: HOME SELF-CARE
== END 2025-02-07 15:57 | disposition home or self-care (01) | DRG 64 ==
LOC: EC 19:53 → 6NMEDSUR 02-05 05:04 → 3SCARD 02-05 11:49
PROVIDERS: ADMIT Hospitalist; ATTEND Hospitalist
DX: I63.40 Cerebral infarction due to embolism of unspecified cerebral artery (principal); G93.6 Cerebral edema; I42.9 Cardiomyopathy, unspecified; I48.19 Other persistent atrial fibrillation; B35.1 Tinea unguium; E78.5 Hyperlipidemia, unspecified; F17.210 Nicotine dependence, cigarettes, uncomplicated; R56.9 Unspecified convulsions; G83.24 Monoplegia of upper limb affecting left nondominant side; I10 Essential (primary) hypertension; L60.2 Onychogryphosis; M10.9 Gout, unspecified; M25.78 Osteophyte, vertebrae; M47.812 Spondylosis without myelopathy or radiculopathy, cervical region; M48.02 Spinal stenosis, cervical region; M50.322 Other cervical disc degeneration at C5-C6 level; R29.700 NIHSS score 0; Z79.82 Long term (current) use of aspirin; Z79.899 Other long term (current) drug therapy
CPT/HCPCS: 36415; 70450; 70496; 70498; 70553; 71046; 72125; 72156; 80053; 80061; 83036; 83735; 84443; 84484; 84550; 85025; 85610; 85730; 93005; 93306; 95819; 96361; 96374; 99285